=== PATIENT | female | born 1960 | race Hispanic/Latino ===

== ENCOUNTER 2020-12-16 08:59 | Emergency (ER) | payer SELFPAY ==
[2020-12-16] MEDS ORDERED: LIDOCAINE 1% MPF 5 ML VIAL ONE (09:52)
--- NOTE | 2020-12-16 09:54 | ER ---
Nurse's Notes [facility] Name: Brittney Gil Age: 60 yrs Sex: Female : 1960 Arrival Date: 12/16/2020 Time: 09:03 Bed 5 Private MD: Diagnosis: Laceration without foreign body of right forearm Presentation: 12/16 09:18 Chief complaint: Patient states: small laceration to right forearm , was putting away iw some onions at work and a knife caught her forearm. Coronavirus screen: At this time, the client does not indicate any symptoms associated with coronavirus-19. Ebola Screen: Patient negative for fever greater than or equal to 101.5 degrees Fahrenheit, and additional compatible Ebola Virus Disease symptoms Patient denies exposure to infectious person. Patient denies travel to an Ebola-affected area in the 21 days before illness onset. No symptoms or risks identified at this time. Complicating Factors: There are no complicating factors for this patient. Initial Sepsis Screen: Does the patient meet any 2 criteria? No. Patient's initial sepsis screen is negative. Does the patient have a suspected source of infection? No. Patient's initial sepsis screen is negative. Risk Assessment: Do you want to hurt yourself or someone else? Patient reports no desire to harm self or others. Onset of symptoms was December 16, 2020. 09:18 Method Of Arrival: Ambulatory iw 09:18 Acuity: DAVID 4 iw Historical: - Allergies: 09:20 No Known Allergies; iw - PMHx: 09:20 Hypertension; Hyperlipidemia; iw - PSHx: 09:20 None; iw - Immunization history:: Adult Immunizations Last tetanus immunization: unknown. - Social history:: Smoking status: . Screenin:52 Abuse screen: Denies threats or abuse. Denies injuries from another. Nutritional hb screening: No deficits noted. Tuberculosis screening: No symptoms or risk factors identified. Fall Risk None identified. Assessment: 09:40 General: Appears in no apparent distress. Behavior is calm, cooperative. Pain: Denies hb pain. Neuro: Level of Consciousness is awake, alert, obeys commands, Oriented to person, place, time, situation. Cardiovascular: Patient's skin is warm and dry. Respiratory: Respiratory effort is even, unlabored, Respiratory pattern is regular, symmetrical. GI: No signs and/or symptoms were reported involving the gastrointestinal system. : No signs and/or symptoms were reported regarding the genitourinary system. EENT: No signs and/or symptoms were reported regarding the EENT system. Derm: Skin is pink, warm \T\ dry. Musculoskeletal: No signs and/or symptoms reported regarding the musculoskeletal system. Injury Description: Laceration sustained to dorsal aspect of right forearm is clean, 2.6 to 7.5 cm long. Vital Signs: 09:18 BP 163 / 72; Pulse 55; Resp 16; Temp 98.1; Pulse Ox 95% on R/A; Weight 73.03 kg; Height iw 5 ft. 5 in. (165.10 cm); 09:18 Body Mass Index 26.79 (73.03 kg, 165.10 cm) iw ED Course: 09:03 Patient arrived in ED. mr 09:20 Triage completed. iw 09:21 Arm band placed on. iw 09:22 Santos Monteiro NP is PHCP. pm1 09:22 Darius Salmon MD is Attending Physician. pm1 09:35 Patient has correct armband on for positive identification. Call light in reach. hb 09:37 Liz Chase RN is Primary Nurse. 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 Exp: hb 02/25/2022. Lot #: [id number]. } Route: IM; Site: right deltoid; 10:11 Follow up: Response: No adverse reaction hb Outcome: 09:53 Discharge ordered by . pm1 10:11 Patient left the ED. hb Signatures: Adele Jurado Betsy Juarez RN RN iw Santos Monteiro NP COMMERCIAL ENGINEER pm1 Liz Chase RN RN hb
--- NOTE | 2020-12-16 09:54 | EDPHYS ---
Physician Documentation [facility] Name: Brittney Gil Age: 60 yrs Sex: Female : 1960 Arrival Date: 12/16/2020 Time: 09: Bed 5 Private MD: ED Physician Darius Salmon HPI: 12/16 09:26 This 60 yrs old Female presents to ER via Ambulatory with complaints of pm1 Laceration To Arm. 09:26 The patient has a laceration related to: working, from a knife, occurred at work, and pm1 there are no complicating factors. The injury was accidental, Patient was putting a box under a table at work and she did not see that a knife was placed between two tables. Knife cut her right forearm. The laceration(s) is(are) located on the dorsal aspect of right forearm. Onset: The symptoms/episode began/occurred just prior to arrival. Associated signs and symptoms: Pertinent negatives: heavy bleeding, numbness distal to injury, suspected foreign body. The patient has not experienced similar symptoms in the past. It is unknown whether or not the patient has recently seen a physician. Historical: - Allergies: 09:20 No Known Allergies; iw - PMHx: 09:20 Hypertension; Hyperlipidemia; iw - PSHx: 09:20 None; iw - Immunization history:: Adult Immunizations Last tetanus immunization: unknown. - Social history:: Smoking status: . ROS: 09:26 Constitutional: Negative for fever, chills, and weight loss, Cardiovascular: Negative pm1 for chest pain, palpitations, and edema, Respiratory: Negative for shortness of breath, cough, wheezing, and pleuritic chest pain, Abdomen/GI: Negative for abdominal pain, nausea, vomiting, diarrhea, and constipation, Back: Negative for injury and pain. 09:26 Neuro: Negative for headache, weakness, numbness, tingling, and seizure. 09:26 MS/extremity: Positive for laceration, of the dorsal aspect of right forearm, Negative for 09:26 Skin: Positive for laceration(s), of the dorsal aspect of right forearm. Exam: 09:29 Constitutional: This is a well developed, well nourished patient who is awake, alert, pm1 and in no acute distress. Head/Face: Normocephalic, atraumatic. 09:29 Back: No spinal tenderness. No costovertebral tenderness. Full range of motion. pm1 09:29 Neck: Exam negative for acute changes, ROM/movement: is normal, is supple. 09:29 Cardiovascular: Exam negative for acute changes, Rate: normal, Rhythm: regular, Pulses: no pulse deficits are appreciated. 09:29 Respiratory: Exam negative for acute changes, respiratory distress, shortness of breath. 09:29 Skin: Exam negative for injury, laceration(s), the wound is approximately 1.5 cm(s). 09:29 Skin: injury, that can be described as clean, no foreign body, irregular, without pm1 bleeding. 09:29 Neuro: Exam negative for acute changes, Orientation: is normal, Mentation: is normal, Motor: is normal, moves all fours, Sensation: is normal, no obvious gross deficits. Vital Signs: 09:18 BP 163 / 72; Pulse 55; Resp 16; Temp 98.1; Pulse Ox 95% on R/A; Weight 73.03 kg; Height iw 5 ft. 5 in. (165.10 cm); 09:18 Body Mass Index 26.79 (73.03 kg, 165.10 cm) iw Laceration: 09:51 Wound Repair of 1.5cm ( 0.6in ) subcutaneous laceration to dorsal aspect of right pm1 forearm. Irregularly shaped.. Distal neuro/vascular/tendon intact. Anesthesia: Local anesthetic administered with 3 mls of 1% lidocaine. Wound prep: Extensive cleansing with betadine by refrigerating technician, Wound irrigation with saline by refrigerating technician, Wound explored extensively, Copious irrigation. Skin closed with 3 4-0 Prolene using simple sutures and sterile technique. Dressed with Neosporin, 4x4's. Patient tolerated well. MDM: 09:22 Patient medically screened. pm1 09:52 Data reviewed: vital signs. Counseling: I had a detailed discussion with the patient pm1 and/or guardian regarding: the historical points, exam findings, and any diagnostic results supporting the discharge/admit diagnosis, the need for outpatient follow up, a family practitioner, to return to the emergency department if symptoms worsen or persist or if there are any questions or concerns that arise at home. 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 Exp: hb 02/25/2022. Lot #: [id number]. } Route: IM; Site: right deltoid; 10:11 Follow up: Response: No adverse reaction hb Disposition: 11:28 Co-signature as Attending Physician, Darius Salmon MD. rn Disposition: 12/16/20 09:53 Discharged to Home. Impression: Laceration without foreign body of right forearm. - Condition is Stable. - Discharge Instructions: Laceration Care, Adult. - Prescriptions for Keflex 500 mg Oral Capsule - take 1 capsule by ORAL route every 12 hours for 10 days; 20 capsule. - Medication Reconciliation Form, Thank You Letter, Antibiotic Education, Prescription Opioid Use form. - Follow up: Emergency Department; When: As needed; Reason: Worsening of condition. Follow up: Private Physician; When: 10 - 14 days; Reason: Recheck today's complaints, Continuance of care, Staple/Suture removal, Re-evaluation by your physician. - Problem is new. - Symptoms have improved. Signatures: Betsy Juarez RN RN Darius Salmon MD MD rn Marinas, Patrick, NP ARRANGING FUNERAL DIRECTOR pm1 Liz Chase RN RN hb Corrections: (The following items were deleted from the chart) 09:32 09:29 Neck: Exam negative for pm1 pm1 10:11 09:53 12/16/2020 09:53 Discharged to Home. Impression: Laceration without foreign body hb of right forearm. Condition is Stable. Forms are Medication Reconciliation Form, Thank You Letter, Antibiotic Education, Prescription Opioid Use. Follow up: Emergency Department; When: As needed; Reason: Worsening of condition. Follow up: Private Physician; When: 10 - 14 days; Reason: Recheck today's complaints, Continuance of care, Staple/Suture removal, Re-evaluation by your physician. Problem is new. Symptoms have improved. pm1
[2020-12-16] MEDS ORDERED: TETANUS & DIPHTHERIA TOX,ADULT 0.5 ML VIAL ONE (10:05)
[2020-12-16 21:42] VITALS: BP 163/72; TEMP 98.1; O2SAT 95
== END 2020-12-16 10:11 | disposition home or self-care (01) ==
LOC: ER 08:59
PROC: 0JQG0ZZ Repair Right Lower Arm Subcutaneous Tissue and Fascia, Open Approach (ICD-10-PCS; principal; 2020-12-16)
DX: S51.811A Laceration without foreign body of right forearm, initial encounter (principal); W26.0XXA Contact with knife, initial encounter; Y93.89 Activity, other specified; Y92.89 Other specified places as the place of occurrence of the external cause; Y99.8 Other external cause status; Z23 Encounter for immunization; I10 Essential (primary) hypertension
CPT/HCPCS: 90471; 90714; 99282

== ENCOUNTER 2020-12-26 09:57 | Emergency (ER) | payer SELFPAY ==
--- NOTE | 2020-12-26 10:14 | ER ---
Nurse's Notes [facility] Name: Brittney Vasquez Age: 60 yrs Sex: Female : 1960 Arrival Date: 12/26/2020 Time: 10:00 Bed Waiting Private MD: Diagnosis: Encounter for removal of sutures Presentation: 12/26 10:08 Chief complaint: Patient states: needs sutures removed from right forearm. Coronavirus hb screen: Client denies travel out of the [place] in the last 14 days. At this time, the client does not indicate any symptoms associated with coronavirus-19. Ebola Screen: No symptoms or risks identified at this time. Risk Assessment: Do you want to hurt yourself or someone else? Patient reports no desire to harm self or others. Onset of symptoms was December 26, 2020. 10:08 Method Of Arrival: Ambulatory hb 10:08 Acuity: DAVID 4 hb 10:10 Initial Sepsis Screen: Does the patient meet any 2 criteria? HR > 90 bpm. No. Patient's hb initial sepsis screen is negative. Does the patient have a suspected source of infection? No. Patient's initial sepsis screen is negative. Triage Assessment: 10:09 General: Appears in no apparent distress. comfortable, Behavior is calm, cooperative, hb appropriate for age. Pain: Denies pain. Neuro: Level of Consciousness is awake, alert, obeys commands, Oriented to person, place, time, situation, Gait is steady. Respiratory: Respiratory effort is even, unlabored. Historical: - Allergies: 10:10 No Known Allergies; hb - PMHx: 10:09 Hyperlipidemia; Hypertension; hb - PSHx: 10:09 None; hb - Immunization history:: Adult Immunizations up to date. - Social history:: Smoking status: . Screenin:10 Abuse screen: Denies threats or abuse. Denies injuries from another. Nutritional hb screening: No deficits noted. Tuberculosis screening: No symptoms or risk factors identified. Fall Risk None identified. Assessment: 10:11 Reassessment: Patient appears in no apparent distress at this time. No changes from hb previously documented assessment. Patient and/or family updated on plan of care and expected duration. Pain level reassessed. Patient is alert, oriented x 3, equal unlabored respirations, skin warm/dry/pink. See triage assessment. Vital Signs: 10:10 BP 146 / 82; Pulse 94; Resp 16; Temp 97.3; Pulse Ox 100% ; hb ED Course: 10:00 Patient arrived in ED. mr 10:07 Ingris Majano [facility] kb 10:07 Darius Salmon MD is Attending Physician. kb 10:08 Arm band placed on. hb 10:09 Triage completed. hb 10:10 Patient has correct armband on for positive identification. hb 10:10 sutures removed from left forearm. Patient did not have IV access during this emergency hb room visit. Administered Medications: No medications were administered Outcome: 10:14 Discharge ordered by . kb 10:49 Patient left the ED. kb Signatures: Ingris Majano FNP-C FNP-Ckb Rivera, Mary Liz Chase, RN RN hb
--- NOTE | 2020-12-26 10:14 | EDPHYS ---
Physician Documentation [facility] Name: Brittney Vasquez Age: 60 yrs Sex: Female : 1960 Arrival Date: 12/26/2020 Time: 10:00 Bed Waiting Private MD: ED Physician Darius Salmon HPI: 12/26 10:12 This 60 yrs old Female presents to ER via Ambulatory with complaints of Suture kb Removal. 10:12 The patient has sutures on the palmar aspect of right forearm. Previous treatment: The kb patient was initially treated 10 day(s) ago, the care was rendered at [facility]. Sutures/camryn progress: The patient has no c/o's. The wound is well-healing with no redness, swelling, discharge, or dehiscence reported. The patient has not experienced similar symptoms in the past. The patient has been recently seen at the [facility] Emergency Department. Historical: - Allergies: 10:10 No Known Allergies; hb - PMHx: 10:09 Hyperlipidemia; Hypertension; hb - PSHx: 10:09 None; hb - Immunization history:: Adult Immunizations up to date. - Social history:: Smoking status: . ROS: 10:12 Constitutional: Negative for fever, chills, and weight loss, MS/Extremity: Negative for kb injury and deformity, Neuro: Negative for headache, weakness, numbness, tingling, and seizure. 10:12 Skin: Positive for of the palmar aspect of right forearm, sutures in place. Exam: 10:12 Constitutional: This is a well developed, well nourished patient who is awake, alert, kb and in no acute distress. Head/Face: Normocephalic, atraumatic. Respiratory: Respirations even and unlabored. No increased work of breathing, no retractions or nasal flaring. MS/ Extremity: Pulses equal, no cyanosis. Neurovascular intact. Full, normal range of motion. Neuro: Awake and alert, GCS 15, oriented to person, place, time, and situation. Moves all extremities. Normal gait. 10:12 Skin: Wound recheck: Suture laceration closure: the wound is healing well, the edges are well approximated, no evidence of dehiscence, no drainage, no erythema, no swelling. Vital Signs: 10:10 BP 146 / 82; Pulse 94; Resp 16; Temp 97.3; Pulse Ox 100% ; hb Procedures: 10:12 Suture/Staple removal: Removed 3 sutures, from palmar aspect of right forearm, site kb appears well healed, dressed with steri-strip. Patient tolerated well. MDM: 10:12 Patient medically screened. kb 10:13 Data reviewed: vital signs, nurses notes. Data interpreted: Pulse oximetry: on room air kb is 100 %. Interpretation: normal. Counseling: I had a detailed discussion with the patient and/or guardian regarding: the historical points, exam findings, and any diagnostic results supporting the discharge/admit diagnosis, the need for outpatient follow up, a family practitioner, to return to the emergency department if symptoms worsen or persist or if there are any questions or concerns that arise at home. Administered Medications: No medications were administered Disposition: 15:10 Co-signature as Attending Physician, Darius Salmon MD. rn Disposition: 12/26/20 10:14 Discharged to Home. Impression: Encounter for removal of sutures. - Condition is Stable. - Discharge Instructions: Suture Removal, Care After. - Medication Reconciliation Form, Thank You Letter, Antibiotic Education, Prescription Opioid Use form. - Follow up: Emergency Department; When: As needed; Reason: Worsening of condition. Follow up: Private Physician; When: 2 - 3 days; Reason: Recheck today's complaints, Continuance of care, Re-evaluation by your physician. Signatures: Ingris Majano, SPRAY I PAINTER-C SPRAY I PAINTER-Ckb Darius Salmon MD MD rn Baxter, Heather, RN RN hb Corrections: (The following items were deleted from the chart) 10:49 10:14 12/26/2020 10:14 Discharged to Home. Impression: Encounter for removal of kb sutures. Condition is Stable. Forms are Medication Reconciliation Form, Thank You Letter, Antibiotic Education, Prescription Opioid Use. Follow up: Emergency Department; When: As needed; Reason: Worsening of condition. Follow up: Private Physician; When: 2 - 3 days; Reason: Recheck today's complaints, Continuance of care, Re-evaluation by your physician. kb
[2020-12-26 11:07] VITALS: BP 146/82; TEMP 97.3; O2SAT 100
== END 2020-12-26 10:49 | disposition home or self-care (01) ==
LOC: ER 09:57
DX: Z48.02 Encounter for removal of sutures (principal)
CPT/HCPCS: 99281

== ENCOUNTER 2024-07-05 14:52 | Emergency (ER) | payer SELFPAY ==
--- OUTSIDE RECORDS SUMMARY | 2024-07-05 14:56 | XMS REPORT | Continuity of Care Document ---
Author Name Unknown Address [address] [facility] [address] [place] [address] [facility] Address [address] [facility] 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 Role Phone Pcp, Patient Does Not Have A Primary Care Physic willem Doctor Unassigned, [place] Attending Clinician U navailable RADIOLOGY Attending Clinician Unavailable Radiology Attending Clinician Unavailable DARLIN CASTREJON Admitting Clinician Unavailable Allergies, Adverse Reactions, Alerts Allergy Name Allergy Type Status Severity Reaction(s) Onset Date Inactive Date Treating Clinician Comments Source NO KNOWN ALLERGIE S Drug Class Active [facility] Social History Social Habit Start Date Stop Date Quantity Comments Source Sexual orientation U [facility] Sex Assigned At 1960 00:00:00 1960 00:00:00 [facility] Smoking Status Start Date Stop Date Source Tobacco smoking consumption unknown [facility] Medications Ordered Medication Name Filled Medication Name Start Date Stop Date Current Medication? Ordering Clinician Indication Dosage Frequency Signature (SIG) Comments Components Source metformin 500 mg tablet 06-10 00:00: 00 Yes 1mg Steffen F Singh lisinopril 10 mg-hydrochl orothiazide 12.5 mg tablet 06-10 00:00: 00 Yes 1mg Steffenvel Winters atorvastati n 40 mg tablet - 00:00: 00 Yes mg Steffen F Singh lisinopril 10 mg tablet 2023-- 00:00: 00 Yes 1mg Steffen Winters fenofibrate nanocrystal lized 145 mg tablet 02-11 00:00: 00 Yes 1mg Steffen Winters metformin 500 mg tablet 02-11 00:00: 00 Yes 1mg Steffen Winters phentermine 37.5 mg tablet 02-11 00:00: 00 Yes 1mg Steffen Winters atorvastati n 40 mg tablet 02-11 00:00: 00 Yes 1mg Steffen Winters Macrobid 100 mg capsule 02-11 00:00: 00 Yes 1mg Steffen iWnters TAKE 1 TABLET DAILY. 11-03 00:00: 00 Yes 40 Steffen Winters TAKE 1 TABLET DAILY. 11-03 00:00: 00 Yes [id number] Steffen Winters TAKE 1 TABLET DAILY. 11-03 00:00: 00 Yes 500 Steffen Winters TAKE 1 TABLET BY MOUTH ONCE DAILY 05-09 00:00: 00 Yes Steffen Winters TAKE 1 TABLET DAILY. 05-09 00:00: 00 12-22 00:00 :00 No 10 Steffen Winters TAKE 1 TABLET DAILY. 05-09 00:00: 00 12-22 00:00 :00 No [id number] Steffen Winters TAKE 1 TABLET DAILY. 18 00:00: 00 12-22 00:00 :00 No 40 Steffen Winters TAKE 1 TABLET BY MOUTH ONCE DAILY 05-05 00:00: 00 Yes Steffen Winters TAKE 1 TABLET BY MOUTH ONCE DAILY 14 00:00: 00 Yes Steffen Winters TAKE ONE (1) TABLET (37.5 MG) BY MOUTH DAILY. 03-26 00:00: 00 Yes Steffen Winters TAKE 1 TABLET DAILY. 02-14 00:00: 00 12-22 00:00 :00 No 500 Steffen Winters TAKE 1 TABLET DAILY. 02-14 00:00: 00 12-22 00:00 :00 No [id number] Steffen Winters TAKE ONE (1) TABLET(S) BY MOUTH ONCE A DAY. 01-22 00:00: 00 Yes Steffen Winters TAKE ONE (1) TABLET(S) BY MOUTH ONCE A DAY. 4-05 00:00: 00 Yes Steffen Winters TAKE 1 TABLET DAILY. 3-13 00:00: 00 12-22 00:00 :00 No 500 Steffen Winters TAKE 1 TABLET DAILY. 3-13 00:00: 00 12-22 00:00 :00 No 40 Steffen Winters TAKE 1 TABLET DAILY. 3 00:00: 00 12-22 00:00 :00 No [id number] Steffen Winters TAKE 1 TABLET BY MOUTH ONCE DAILY 9-30 00:00: 00 Yes Steffen Winters TAKE 1 TABLET BY MOUTH ONCE DAILY 9- 00:00: 00 No TAKE 1 TABLET BY MOUTH ONCE DAILY 9 00:00: 00 12-22 00:00 :00 No Steffen Winters TAKE 1 TABLET DAILY. - 00:00: 00 12-22 00:00 :00 No [id number] Steffen Winters TAKE 1 TABLET BY MOUTH ONCE DAILY 0 8-18 00:00: 00 No 40 TAKE 1 TABLET BY MOUTH ONCE DAILY 0 8-18 00:00: 00 Yes 40 Steffen Winters montelukast 10 mg tablet - 00:00: 00 No 1mg Dose Unknown - 00:00: 00 No montelukast 10 mg tablet - 00:00: 00 Yes 1mg Steffen Winters Dose Unknown - 00:00: 00 Yes Steffen Winters Dose Unknown 6-08 00:00: 00 No Dose Unknown 0 6-08 00:00: 00 Yes Steffen Winters montelukast 10 mg tablet 6- 00:00: 00 No 1mg montelukast 10 mg tablet 6-03 00:00: 00 Yes 1mg Steffen Winters Dose Unknown 5-02 00:00: 00 No Dose Unknown 5-02 00:00: 00 No Dose Unknown 4-15 00:00: 00 No Dose Unknown 0 4-15 00:00: 00 No Dose Unknown 0 4-15 00:00: 00 Yes Steffen Winters Dose Unknown 0 4-15 00:00: 00 Yes Steffen Winters Dose Unknown 0 4-13 00:00: 00 No Dose Unknown 0 4-13 00:00: 00 No Dose Unknown 0 4-13 00:00: 00 Yes Steffen Winters Dose Unknown 0 4-13 00:00: 00 Yes Steffen Winters montelukast 10 mg tablet 0 4-12 00:00: 00 No 1mg Flonase Allergy Relief 50 mcg/actuati on nasal spray,suspe nsion 0 4-12 00:00: 00 No 1mcg/ac tuation montelukast 10 mg tablet 0 4-12 00:00: 00 Yes 1mg Steffen Winters Flonase Allergy Relief 50 mcg/actuati on nasal spray,suspe nsion 0 4-12 00:00: 00 Yes 1mcg/ac tuation Steffen Winters levofloxaci n 500 mg tablet 0 4-08 00:00: 00 No 1mg Dose Unknown 0 4-08 00:00: 00 No levofloxaci n 500 mg tablet 0 4-08 00:00: 00 Yes 1mg Steffen Winters Dose Unknown 0 4-08 00:00: 00 Yes Steffen Winters lisinopril 10 mg-hydrochl orothiazide 12.5 mg tablet 0 2-15 00:00: 00 No 1mg atorvastati n 40 mg tablet 2021-0 2-15 00:00: 00 No 1mg lisinopril 10 mg-hydrochl orothiazide 12.5 mg tablet 2021-0 2-15 00:00: 00 Yes 1mg Steffen Winters atorvastati n 40 mg tablet 0 2-15 00:00: 00 Yes 1mg Steffen Winters levofloxaci n 500 mg tablet 2020-0 6-24 00:00: 00 No 1mg omeprazole 20 mg capsule,del ayed release 2020-0 6-24 00:00: 00 No 1mg amoxicillin 500 mg capsule 03-15 00:00: 00 No 2mg levofloxaci n 500 mg tablet 03-15 00:00: 00 Yes 1mg Steffen Winters omeprazole 20 mg capsule,del ayed release 03-15 00:00: 00 Yes 1mg Steffen Winters amoxicillin 500 mg capsule 0 03-15 00:00: 00 Yes 2mg Steffen Winters sulfamethox azole 800 mg-trimetho prim 160 mg tablet 03-13 00:00: 00 No 1mg sulfamethox azole 800 mg-trimetho prim 160 mg tablet 03-13 00:00: 00 Yes 1mg Steffen Winters omeprazole 20 mg capsule,del ayed release 12-13 00:00: 00 No 1mg omeprazole 20 mg capsule,del ayed release 12-13 00:00: 00 Yes 1mg Steffen Winters atorvastati n 40 mg tablet 12-12 00:00: 00 No 1mg lisinopril 10 mg-hydrochl orothiazide 12.5 mg tablet 12-12 00:00: 00 No 1mg atorvastati n 40 mg tablet 12-12 00:00: 00 Yes 1mg Steffen Winters lisinopril 10 mg-hydrochl orothiazide 12.5 mg tablet 12-12 00:00: 00 Yes 1mg Steffen Winters metronidazo le 500 mg tablet 2- 00:00: 00 No 1mg clarithromy richa 500 mg tablet 2- 00:00: 00 No 1mg omeprazole 20 mg capsule,del ayed release 2- 00:00: 00 No 1mg metronidazo le 500 mg tablet 2- 00:00: 00 Yes 1mg Steffen Winters clarithromy richa 500 mg tablet 2- 00:00: 00 Yes 1mg Steffen Winters omeprazole 20 mg capsule,del ayed release 2- 00:00: 00 Yes 1mg Steffen Winters atorvastati n 40 mg tablet 2019-09 00:00: 00 No 1mg lisinopril 10 mg-hydrochl orothiazide 12.5 mg tablet 2019-09 00:00: 00 No 1mg atorvastati n 40 mg tablet 2019-09 00:00: 00 Yes 1mg Steffen Winters lisinopril 10 mg-hydrochl orothiazide 12.5 mg tablet 2019-09 00:00: 00 Yes 1mg Steffen Winters lisinopril 10 mg-hydrochl orothiazide 12.5 mg tablet 2019-09 00:00: 00 No 1mg atorvastati n 40 mg tablet 2019-09 00:00: 00 No 1mg lisinopril 10 mg-hydrochl orothiazide 12.5 mg tablet 2019-09 00:00: 00 Yes 1mg Steffen Winters atorvastati n 40 mg tablet 2019-09 00:00: 00 Yes 1mg Steffen Winters atorvastati n 40 mg tablet 2018-09 00:00: 00 No 1mg atorvastati n 40 mg tablet 2018-0918 00:00: 00 Yes 1mg Steffen Winters cyclobenzap rine 5 mg tablet 605 00:00: 00 No 1mg cyclobenzap rine 5 mg tablet 05 00:00: 00 Yes 1mg Steffen Winters clarithromy richa 500 mg tablet 12-15 00:00: 00 No 1mg amoxicillin 500 mg capsule 12-15 00:00: 00 No 2mg clarithromy richa 500 mg tablet 12-15 00:00: 00 Yes 1mg Steffen Winters amoxicillin 500 mg capsule 12-15 00:00: 00 Yes 2mg Steffen Winters lisinopril 10 mg-hydrochl orothiazide 12.5 mg tablet 11-23 00:00: 00 No 1mg lisinopril 10 mg-hydrochl orothiazide 12.5 mg tablet 11-23 00:00: 00 No 1mg lisinopril 10 mg-hydrochl orothiazide 12.5 mg tablet 11-23 00:00: 00 Yes 1mg Steffen Winters ibuprofen 600 mg tablet 11-21 00:00: 00 No 1mg ibuprofen 600 mg tablet 11-21 00:00: 00 Yes 1mg Steffen Winters Immunizations Ordered Immunization Name Filled Immunization Name Date Status Comments Source Influenza, injectable, Madin Shruthi Canine Kidney, preservative-free, quadrivalent Influenza, injectable, Madin Cascade Canine Kidney, preservative-free, quadrivalent 2024-06-10 00:00:00 Completed Steffen Winters (Old) Moderna COVID-19 Vaccine Bivalent Booster for ages 6 + years (18+, 12-17, 6-11) (Old) Moderna COVID-19 Vaccine Bivalent Booster for ages 6 + years (18+, 12-17, 6-11) 2022-12-27 00:00:00 Completed Steffen Wniters pneumococcal polysacchar 2021-11-06 00:00:00 Completed pneumococcal polysacchar pneumococcal polysacchar 2021-11-06 00:00:00 Completed Steffen Winters Moderna COVID-19 Vaccine 2021-08-28 00:00:00 Completed Moderna COVID-19 Vaccine Moderna COVID-19 Vaccine 2021-08-28 00:00:00 Completed Steffen Winters Moderna COVID-19 Vaccine 2020-12-02 00:00:00 Completed Moderna COVID-19 Vaccine Moderna COVID-19 Vaccine 2020-12-02 00:00:00 Completed Steffen Winters Moderna COVID-19 Vaccine 2020-10-29 00:00:00 Completed Moderna COVID-19 Vaccine Moderna COVID-19 Vaccine 2020-10-29 00:00:00 Completed Steffen Winters Influenza, seasonal, inj 2019-07-14 00:00:00 Completed Influenza, seasonal, inj Influenza, seasonal, inj 2019-07-14 00:00:00 Completed Steffen Winters zoster 2019-02-24 00:00:00 Completed zoster zoster 2019-02-24 00:00:00 Completed Steffen Winters Vital Signs Vital Name Observation Time Observation Value Comments S marco BP Systolic 2024-06-10 08:57:00 145 mm[Hg] Andreas Winters BP Diastolic 2024-06-10 08:57:00 81 mm[Hg] Ej Winters Weight Measured 2024-06-10 08:57:00 163.20 pounds Steffen F Singh Height Measured 2024-06-10 08:57:00 60.00 inches Steffen F Singh Body Temperature 2024-06-10 08:57:00 97.90 degrees Steffen F Singh Heart Rate 2024-06-10 08:57:00 59.00 /min Yudith en F Singh Respiratory Rate 2024-06-10 08:57:00 Stfefen F Singh BP Systolic 2024-03-09 15:54:00 155 mm[Hg] Step hen F Singh BP Diastolic 2024-03-09 15:54:00 78 mm[Hg] Ej phen F Singh Weight Measured 2024-03-09 15:54:00 166.00 pounds Steffen F Singh Height Measured 2024-03-09 15:54:00 60.00 inches Steffen F Singh Body Temperature 2024-03-09 15:54:00 98.30 degrees Steffen F Singh Heart Rate 2024-03-09 15:54:00 63.00 /min Yudith en F Singh Respiratory Rate 2024-03-09 15:54:00 18.00 /min Steffen F Singh BP Systolic 2024-02-12 14:58:00 113 mm[Hg] Step hen F Singh BP Diastolic 2024-02-12 14:58:00 62 mm[Hg] Ej phen F Singh Weight Measured 2024-02-12 14:58:00 166.00 pounds Steffen F Singh Height Measured 2024-02-12 14:58:00 60.00 inches Steffen F Singh Body Temperature 2024-02-12 14:58:00 97.80 degrees Steffen F Singh Heart Rate 2024-02-12 14:58:00 61.00 /min Yudith en F Singh Respiratory Rate 2024-02-12 14:58:00 16.00 /min Steffen F Singh BP Systolic 2024-02-12 14:31:00 113 mm[Hg] Step hen F Singh BP Diastolic 2024-02-12 14:31:00 62 mm[Hg] Ej phen F Singh Weight Measured 2024-02-12 14:31:00 166.00 pounds Steffen F Singh Height Measured 2024-02-12 14:31:00 60.00 inches Steffen F Singh Body Temperature 2024-02-12 14:31:00 97.80 degrees Steffen F Singh Heart Rate 2024-02-12 14:31:00 61.00 /min Yudith en F Singh Respiratory Rate 2024-02-12 14:31:00 Steffen F Singh BP Systolic 2023-11-03 10:52:00 146 mm[Hg] Step hen F Singh BP Diastolic 2023-11-03 10:52:00 91 mm[Hg] Ej phen F Singh Weight Measured 2023-11-03 10:52:00 170.60 pounds Steffen F Singh Height Measured 2023-11-03 10:52:00 60.00 inches Steffen F Singh Body Temperature 2023-11-03 10:52:00 98.30 degrees Steffen F Singh Heart Rate 2023-11-03 10:52:00 49.00 /min Yudith en F Singh Respiratory Rate 2023-11-03 10:52:00 16.00 /min Steffen F Singh BP Systolic 2023-05-09 07:58:00 112 mm[Hg] Step hen F Singh BP Diastolic 2023-05-09 07:58:00 75 mm[Hg] Ej phen F Singh Weight Measured 2023-05-09 07:58:00 155.80 pounds Steffen F Singh Height Measured 2023-05-09 07:58:00 60.00 inches Steffen F Singh Body Temperature 2023-05-09 07:58:00 98.30 degrees Steffen F Singh Heart Rate 2023-05-09 07:58:00 62.00 /min Yudith en F Singh Respiratory Rate 2023-05-09 07:58:00 Steffen F Singh BP Systolic 2023-02-14 08:03:00 144 mm[Hg] Step hen F Singh BP Diastolic 2023-02-14 08:03:00 83 mm[Hg] Ej phen F Singh Weight Measured 2023-02-14 08:03:00 152.20 pounds Steffen F Singh Height Measured 2023-02-14 08:03:00 60.00 inches Steffen F Singh Body Temperature 2023-02-14 08:03:00 97.90 degrees Steffen F Singh Heart Rate 2023-02-14 08:03:00 65.00 /min Yudith en F Singh Respiratory Rate 2023-02-14 08:03:00 17.00 /min Steffen F Singh BP Systolic 2022-12-02 13:57:00 131 mm[Hg] Step hen F Singh BP Diastolic 2022-12-02 13:57:00 82 mm[Hg] Ej phen F Singh Weight Measured 2022-12-02 13:57:00 171.20 pounds Steffen F Singh Height Measured 2022-12-02 13:57:00 60.00 inches Steffen F Singh Body Temperature 2022-12-02 13:57:00 97.40 degrees Steffen F Singh Heart Rate 2022-12-02 13:57:00 70.00 /min Yudith en F Singh Respiratory Rate 2022-12-02 13:57:00 18.00 /min Steffen F Singh BP Systolic 2022-06-10 09:16:00 152 mm[Hg] Step hen F Singh BP Diastolic 2022-06-10 09:16:00 79 mm[Hg] Ej phen F Singh Weight Measured 2022-06-10 09:16:00 170.20 pounds Steffen F Singh Height Measured 2022-06-10 09:16:00 60.00 inches Steffen F Singh Body Temperature 2022-06-10 09:16:00 98.10 degrees Steffen F Singh Heart Rate 2022-06-10 09:16:00 79.00 /min Yudith en F Singh Respiratory Rate 2022-06-10 09:16:00 Steffen F Singh BP Systolic 2022-02-27 16:32:00 115 mm[Hg] Step hen F Singh BP Diastolic 2022-02-27 16:32:00 64 mm[Hg] Ej phen F Singh Weight Measured 2022-02-27 16:32:00 175.40 pounds Steffen F Singh Height Measured 2022-02-27 16:32:00 60.00 inches Steffen F Singh Body Temperature 2022-02-27 16:32:00 98.60 degrees Steffen F Singh Heart Rate 2022-02-27 16:32:00 70.00 /min Yudith en F Singh Respiratory Rate 2022-02-27 16:32:00 21.00 /min Steffen F Singh BP Systolic 2022-01-21 08:20:00 149 mm[Hg] Step hen F Singh BP Diastolic 2022-01-21 08:20:00 82 mm[Hg] Ej Winters Weight Measured 2022-01-21 08:20:00 171.80 pounds Steffen Winters Height Measured 2022-01-21 08:20:00 60.00 inches Steffen Vasyl Winters Body Temperature 2022-01-21 08:20:00 97.30 degrees Steffen Winters Heart Rate 2022-01-21 08:20:00 63.00 /min Yudith Winters Respiratory Rate 2022-01-21 08:20:00 Steffen Winters BP Systolic 2022-01-01 11:45:00 150 mm[Hg] BP Diastolic 2022-01-01 11:45:00 77 mm[Hg] Weight Measured 2022-01-01 11:45:00 174.20 pounds Height Measured 2022-01-01 11:45:00 60.00 inches Body Temperature 2022-01-01 11:45:00 98.20 degrees Heart Rate 2022-01-01 11:45:00 63.00 /min Respiratory Rate 2022-01-01 11:45:00 16.00 /min BP Systolic 2021-12-28 17:37:00 143 mm[Hg] BP Diastolic 2021-12-28 17:37:00 72 mm[Hg] Weight Measured 2021-12-28 17:37:00 Height Measured 2021-12-28 17:37:00 Body Temperature 2021-12-28 17:37:00 Heart Rate 2021-12-28 17:37:00 Respiratory Rate 2021-12-28 17:37:00 BP Systolic 2021-11-06 09:03:00 148 mm[Hg] BP Diastolic 2021-11-06 09:03:00 89 mm[Hg] Weight Measured 2021-11-06 09:03:00 171.40 pounds Height Measured 2021-11-06 09:03:00 51.00 inches Body Temperature 2021-11-06 09:03:00 98.30 degrees Heart Rate 2021-11-06 09:03:00 60.00 /min Respiratory Rate 2021-11-06 09:03:00 16.00 /min BP Systolic 2021-05-23 17:10:00 BP Diastolic 2021-05-23 17:10:00 Weight Measured 2021-05-23 17:10:00 168.00 pounds Height Measured 2021-05-23 17:10:00 Body Temperature 2021-05-23 17:10:00 Heart Rate 2021-05-23 17:10:00 Respiratory Rate 2021-05-23 17:10:00 BP Systolic 2021-03-13 08:07:00 134 mm[Hg] BP Diastolic 2021-03-13 08:07:00 64 mm[Hg] Weight Measured 2021-03-13 08:07:00 165.60 pounds Height Measured 2021-03-13 08:07:00 51.00 inches Body Temperature 2021-03-13 08:07:00 98.90 degrees Heart Rate 2021-03-13 08:07:00 48.00 /min Respiratory Rate 2021-03-13 08:07:00 BP Systolic 2020-12-12 08:09:00 132 mm[Hg] BP Diastolic 2020-12-12 08:09:00 76 mm[Hg] Weight Measured 2020-12-12 08:09:00 163.20 pounds Height Measured 2020-12-12 08:09:00 51.00 inches Body Temperature 2020-12-12 08:09:00 99.00 degrees Heart Rate 2020-12-12 08:09:00 55.00 /min Respiratory Rate 2020-12-12 08:09:00 18.00 /min BP Systolic 2020-11-14 10:06:00 155 mm[Hg] BP Diastolic 2020-11-14 10:06:00 83 mm[Hg] Weight Measured 2020-11-14 10:06:00 164.60 pounds Height Measured 2020-11-14 10:06:00 51.00 inches Body Temperature 2020-11-14 10:06:00 98.30 degrees Heart Rate 2020-11-14 10:06:00 60.00 /min Respiratory Rate 2020-11-14 10:06:00 16.00 /min Procedures Procedure Date / Time Performed Performing Clinician Source AUTHORIZATION FOR RELEASE OF PHI 2022-06-28 05:01:00 Doctor Unassigned, [facility] CT HEAD WO CONTRAST 2022-01-28 14:03:55 Requisition, P aper [facility] PATIENT FINANCIAL POLICY 2022-01-28 13:34:49 Doctor Unassigned, [place] NO SHOW OR MISSED APPOINTMENT POLICY ACKNOWLEDGEMENT 2022-01-28 13:34:29 Doctor Unassigned, [place] NOTICE OF PRIVACY PRACTICES 2022-01-28 13:34:05 Doctor Unassigned, [place] CONSENT/REFUSAL FOR DIAGNOSIS AND TREATMENT 2022-01-28 13:33:46 Doctor Unassigned, [place] ASSIGNMENT OF BENEFITS 2022-01-28 13:33:24 Docto r Unassigned, [place] REFERRAL- REQUEST/RESPONSE 2022-01-21 05:01:00 Ashley izquierdo Unassigned, [facility] Plan of Care Planned Activity Planned Date Details Comments Source Goal Plan of Care Note [code = 52605-1] Goal Plan of Care Note [code = 82242-9] Goal Plan of Care Note [code = 59693-4] Goal Plan of Care Note [code = 80674-4] Goal Plan of Care Note [code = 34987-9] Goal Plan of Care Note [code = 12181-7] Goal Plan of Care Note [code = 94831-2] Goal Plan of Care Note [code = 96691-1] Goal Plan of Care Note [code = 52197-9] Goal Plan of Care Note [code = 19958-1] Goal Plan of Care Note [code = 07835-3] Goal Plan of Care Note [code = 73721-8] Goal Plan of Care Note [code = 31097-9] Goal Plan of Care Note [code = 30554-6] Goal Plan of Care Note [code = 72245-7] Goal Plan of Care Note [code = 07105-1] Goal Plan of Care Note [code = 93307-8] Goal Plan of Care Note [code = 28033-4] Goal Plan of Care Note [code = 07024-9] Goal Plan of Care Note [code = 22221-0] Goal Plan of Care Note [code = 74461-1] Goal Plan of Care Note [code = 48031-0] Goal Plan of Care Note [code = 41416-8] Goal Plan of Care Note [code = 52828-0] Goal Plan of Care Note [code = 05573-2] Goal Plan of Care Note [code = 32879-9] Goal Plan of Care Note [code = 07456-6] Goal Plan of Care Note [code = 52204-7] Goal Plan of Care Note [code = 01738-0] Goal Plan of Care Note [code = 29240-1] Goal Plan of Care Note [code = 64262-7] Goal Plan of Care Note [code = 90712-9] Goal Plan of Care Note [code = 64599-8] Goal Plan of Care Note [code = 49655-0] Encounters Start Date/Time End Date/Time Encounter Type Admission Type Attending [facility] Care Department Encounter ID Source 2024-06-10 08:52:45 2024-06-10 08:52:45 Outpatient [facility] [id number] Steffen Winters 2024-06-10 00:00:00 2024-06-10 00:00:00 Outpatient Visit [facility] [id number] Steffen Winters 2024-03-09 15:51:38 2024-03-09 15:51:38 Outpatient [facility] [id number] Steffen Winters 2024-03-09 00:00:00 2024-03-09 00:00:00 Outpatient Visit [facility] [id number] Steffen Winters 2024-02-12 14:25:07 2024-02-12 14:25:07 Outpatient [facility] [id number] Steffen Winters 2024-02-12 00:00:00 2024-02-12 00:00:00 Outpatient Visit [facility] [id number] Steffen Winters 2023-12-19 09:21:55 2023-12-19 09:21:55 Outpatient [facility] [id number] Steffen Winters 2023-11-10 09:32:57 2023-11-10 09:32:57 Outpatient [facility] [id number] Steffen Winters 2023-11-03 10:39:31 2023-11-03 10:39:31 Outpatient [facility] [id number] Steffen Winters 2023-05-09 07:53:05 2023-05-09 07:53:05 Outpatient [facility] [id number] Steffen Winters 2023-02-14 07:58:34 2023-02-14 07:58:34 Outpatient [facility] [id number] Steffen Fallon Singh 2022-12-02 13:43:55 2022-12-02 13:43:55 Outpatient [facility] [id number] Steffen Fallon Singh 2022-06-28 00:00:00 2022-06-28 00:00:00 Orders Only Doctor Unassigned, [place] [id number] [id number] [facility] 2022-06-10 00:00:00 2022-06-10 00:00:00 Outpatient Visit [id number] 2022-03-13 00:00:00 2022-03-13 00:00:00 Patient Secure Msg Doctor Unassigned, [place] [facility] ([facility] [id number] [id number] [id number] [id number] [facility] 2022-03-09 00:00:00 2022-03-09 00:00:00 Patient Secure Msg Doctor Unassigned, [place] [facility] 1.840.114 350.1.13.10 [id number] [id number] [facility] 2022-01-28 08:32:36 2022-01-28 23:59:00 Outpatient R RADIOLOGY [facility] [id number] [facility] 2022-01-28 08:32:36 2022-01-28 23:59:00 Hospital Encounter Radiology [facility] [id number] 350.1.13.10 [id number] [id number] [facility] 2022-01-21 00:00:00 2022-01-21 00:00:00 Orders Only Doctor Unassigned, [place] [facility] [id number] [id number] [id number] [id number] [facility] Results Test Description Test Time Test Comments Results Result Co mments Source COMPREHENSIVE METABOLIC [id number] 03:43:49* Test Item Value Reference Range Interpretation Comme nts GLUCOSE (test code = 2217) 110 MG/DL 70-99 H BUN (test code = 220) 17 MG/DL 8-23 CREATININE (test code = 2214) 0.60 MG/DL 0.60-1.30 eGFR (2020 CKD-EPI) (test code = 09305) 101 ML/MIN/1.73 >60 CALC BUN/CREAT (test code = 2235) 28 RATIO 6-28 SODIUM (test code = 2231) 140 MEQ/L 133-146 POTASSIUM (test code = 2228) 4.4 MEQ/L 3.5-5.4 CHLORIDE (test code = 2215) 104 MEQ/L 95-107 CARBON DIOXIDE (test code = 2206) 24 MEQ/L 19-31 CALCIUM (test code = 2209) 10.0 MG/DL 8.5-10.5 PROTEIN, TOTAL (test code = 2229) 7.4 G/DL 6.1-8.3 ALBUMIN (test code = 2201) 4.6 G/DL 3.5-5.2 CALC GLOBULIN (test code = 2240) 2.8 G/DL 1.9-3.7 CALC A/G RATIO (test code = 2234) 1.6 RATIO 1.0-2.6 BILIRUBIN, TOTAL (test code = 2207) 0.3 MG/DL <=1.2 ALKALINE PHOSPHATASE (test code = 2204) 85 U/L 40-140 AST (test code = 2218) 26 U/L 9-40 ALT (test code = 2219) 31 U/L 5-40 LIPID [id number] 03:43:49* Test Item Value Reference Range Interpretation Comme nts CHOLESTEROL (test code = 2210) 140 MG/DL <200 TRIGLYCERIDES (test code = 2232) 172 MG/DL <150 H HDL CHOLESTEROL (test code = 2220) 40 MG/DL >39 CALC LDL CHOL (test code = 2237) 73 MG/DL <100 NOTE: CALCULATED LDL IS BASED ON JEFFREY-GARCIA METHOD WHICHINCLUDES ADJUSTABLE TRIGLYCERIDE:VLDL CHOLESTEROL RATIO.THIS FACTOR VARIES BY MEASURED TRIGLYCERIDE AND NON-HDLCHOLESTEROL CONCENTRATIONS WITH INCREASED CALCULATED LDL SEENIN HIGHER TRIGLYCERIDE OR LOWER NON-HDL SPECIMENS. FOR MOREINFORMATION, SEE CLIENT ANNOUNCEMENT AT [email or web address] RATIO LDL/HDL (test code = 2238) 1.83 RATIO <3.22 UNLESS OTHERW ISE INDICATED, ALL TESTING PERFORMED AT [facility] [employer] [address] [place] [address] PULP BLEACHER: JONATAN RUFFIN M.D. CLIA NUMBER [id number] [place]. [id number] 09:40:53* Test Item Value Reference Range Interpretation Comme nts D-DIMER (test code = 1405) 0.35 UG/ML FEU <=0.49 NOTE: Provided r eference range is established for evaluation of Deep Venous Thrombosis/Pulmonary Embolus (DVT/PE). Results below cutoff value of <=0.49 UG/ML FEU have a high negative predictive value forDVT/PE. No reference range is established for disseminatedintra-vascul ar coagulation (DIC). UNLESS OTHERWISE INDICATED, ALL TESTING PERFORMED AT [facility] [address] [place] [address] PULP BLEACHER: JONATAN RUFFIN M.D. CLIA NUMBER [id number] [place]. [id number] 00:00:00* Test Item Value Reference Range Interpretation Comme nts D-DIMER (test code = 1405) 0.35 UG/MLFEU Steffen WintersRupeyrD-[id number] 00:00:00* Test Item Value Reference Range Interpretation Comme nts D-DIMER (test code = 1405) 0.35 UG/MLFEU Steffen WintersTzxcacH-[id number] 00:00:00* Test Item Value Reference Range Interpretation Comme nts D-DIMER (test code = 1405) 0.35 UG/MLFEU Steffen Larry [id number] 14:57:58SPECIMEN NUMBER: [id number] CULTURE, URINE SPECIMEN NUMBER: [id number] SOURCE: URINE REPORT STATUS: FINAL FINAL REPORT: 02/14/2024 50-100,000 CFU/ML UROGENITAL OMAR PRESENT NO COMMON PATHOGENS UNLESS OTHERWISE INDICATED, ALL TESTING PERFORMED AT [facility] [address] [place] [address] PULP BLEACHER: JONATAN RUFFIN M.D. CLIA NUMBER [id number] [facility] [place]. [id number] CULTURE, [id number] 00:00:00* Test Item Value Reference Range Interpretation Comme nts CULTURE, URINE (test code = 50282) SPECIMEN NUMBER: [id number] Steffen Larry, [id number] 00:00:00* Test Item Value Reference Range Interpretation Comme nts CULTURE, URINE (test code = 52434) SPECIMEN NUMBER: [id number] Steffen Larry, [id number] 00:00:00* Test Item Value Reference Range Interpretation Comme nts CULTURE, URINE (test code = 88673) SPECIMEN NUMBER: [id number] Steffen WintersLIPID [id number] 04:21:42* Test Item Value Reference Range Interpretation Comme nts CHOLESTEROL (test code = 2210) 116 MG/DL <200 TRIGLYCERIDES (test code = 2232) 183 MG/DL <150 H HDL CHOLESTEROL (test code = 2220) 38 MG/DL >39 L CALC LDL CHOL (test code = 2237) 52 MG/DL <100 NOTE: CALCULATED LDL IS BASED ON JEFFREY-GARCIA METHOD WHICHINCLUDES ADJUSTABLE TRIGLYCERIDE:VLDL CHOLESTEROL RATIO.THIS FACTOR VARIES BY MEASURED TRIGLYCERIDE AND NON-HDLCHOLESTEROL CONCENTRATIONS WITH INCREASED CALCULATED LDL SEENIN HIGHER TRIGLYCERIDE OR LOWER NON-HDL SPECIMENS. FOR MOREINFORMATION, SEE CLIENT ANNOUNCEMENT AT [email or web address] RISK RATIO LDL/HDL (test code = 2237) 1.37 RATIO <3.22 COMPREHENSIVE METABOLIC [id number] 04:21:42* Test Item Value Reference Range Interpretation Comme nts GLUCOSE (test code = 2216) 106 MG/DL 70-99 H BUN (test code = 2207) 15 MG/DL 8-23 CREATININE (test code = 2213) 0.50 MG/DL 0.60-1.30 L eGFR (2020 CKD-EPI) (test code = ) 105 ML/MIN/1.73 >60 CALC BUN/CREAT (test code = 2234) 30 RATIO 6-28 H SODIUM (test code = 2230) 141 MEQ/L 133-146 POTASSIUM (test code = 2227) 4.6 MEQ/L 3.5-5.4 CHLORIDE (test code = 2214) 103 MEQ/L 95-107 CARBON DIOXIDE (test code = 2205) 26 MEQ/L 19-31 CALCIUM (test code = 2208) 9.8 MG/DL 8.5-10.5 PROTEIN, TOTAL (test code = 2228) 7.5 G/DL 6.1-8.3 ALBUMIN (test code = 2200) 4.7 G/DL 3.5-5.2 CALC GLOBULIN (test code = 2240) 2.8 G/DL 1.9-3.7 CALC A/G RATIO (test code = 2233) 1.7 RATIO 1.0-2.6 BILIRUBIN, TOTAL (test code = 2206) 0.3 MG/DL <=1.2 ALKALINE PHOSPHATASE (test code = 2203) 86 U/L 40-140 AST (test code = 2217) 25 U/L 9-40 ALT (test code = 2219) 26 U/L 5-40 UNLESS OTHERWISE INDICATED, ALL TESTING PERFORMED AT [facility] [address] [place] [address] PULP BLEACHER: JONATAN RUFFIN M.D. IA NUMBER [id number] [facility] [place]. [id number] HEMOGLOBIN [id number] 02:09:29* Test Item Value Reference Range Interpretation Comme nts HEMOGLOBIN A1c (test code = 67616) 5.9 % 4.2-5.6 H [employer] GUIDELINES FOR HGB A1C: PREDIABETES/INCREASED RISK . . . . . . . 5.7-6.4% DIAGNOSIS OF DIABETES . . . . . . . . . >=6.5% WITH CONFIRMATION OR APPROPRIATE SYMPTOMS NOTE: ASSAY MAY BE AFFECTED BY HEMOGLOBINOPATHIES (SICKLE CELL ANEMIA, S-C DISEASE, OTHERS) OR ARTIFICIALLY LOWERED BY DECREASED RED CELL SURVIVAL (HEMOLYTIC ANEMIAS, BLOOD LOSS, ETC.). CONSIDER ALTERNATE TESTING OR LABORATORY CONSULTATION. LIPID [id number] 00:00:00* Test Item Value Reference Range Interpretation Comme nts CHOLESTEROL (test code = 2210) 116 MG/DL TRIGLYCERIDES (test code = 2232) 183 MG/DL HDL CHOLESTEROL (test code = 2220) 38 MG/DL CALC LDL CHOL (test code = 2237) 52 MG/DL RISK RATIO LDL/HDL (test cod e = 2238) 1.37 RATIO Steffen WintersCOMPREHENSIVE METABOLIC [id number] 00:00:00* Test Item Value Reference Range Interpretation Comme nts GLUCOSE (test code = 2217) 106 MG/DL BUN (test code = 2208) 15 MG/DL CREATININE (test code = 2214) 0.50 MG/DL eGFR (2020 CKD-EPI) (test code = 86915) 105 ML/MIN/1.73 CALC BUN/CREAT (test code = 2235) 30 RATIO SODIUM (test code = 2231) 141 MEQ/L POTASSIUM (test code = 2228) 4.6 MEQ/L CHLORIDE (test code = 2215) 103 MEQ/L CARBON DIOXIDE (test code = 2206) 26 MEQ/L CALCIUM (test code = 2209) 9.8 MG/DL PROTEIN, TOTAL (test code = 2229) 7.5 G/DL ALBUMIN (test code = 2201) 4.7 G/DL CALC GLOBULIN (test code = 2240) 2.8 G/DL CALC A/G RATIO (test code = 2234) 1.7 RATIO BILIRUBIN, TOTAL (test code = 2207) 0.3 MG/DL ALKALINE PHOSPHATASE (test code = 2204) 86 U/L AST (test code = 2218) 25 U/L ALT (test code = 2219) 26 U/L Steffen WintersHEMOGLOBIN [id number] 00:00:00* Test Item Value Reference Range Interpretation Comme nts HEMOGLOBIN A1c (test code = 24320) 5.9 % Steffen WintersLIPID [id number] 00:00:00* Test Item Value Reference Range Interpretation Comme nts CHOLESTEROL (test code = 2210) 116 MG/DL TRIGLYCERIDES (test code = 2232) 183 MG/DL HDL CHOLESTEROL (test code = 2220) 38 MG/DL CALC LDL CHOL (test code = 2237) 52 MG/DL RISK RATIO LDL/HDL (test cod e = 2238) 1.37 RATIO Steffen WintersCOMPREHENSIVE METABOLIC [id number] 00:00:00* Test Item Value Reference Range Interpretation Comme nts GLUCOSE (test code = 2217) 106 MG/DL BUN (test code = 2208) 15 MG/DL CREATININE (test code = 2214) 0.50 MG/DL eGFR (2020 CKD-EPI) (test code = 41146) 105 ML/MIN/1.73 CALC BUN/CREAT (test code = 2235) 30 RATIO SODIUM (test code = 2231) 141 MEQ/L POTASSIUM (test code = 2228) 4.6 MEQ/L CHLORIDE (test code = 2215) 103 MEQ/L CARBON DIOXIDE (test code = 2206) 26 MEQ/L CALCIUM (test code = 2209) 9.8 MG/DL PROTEIN, TOTAL (test code = 2229) 7.5 G/DL ALBUMIN (test code = 2201) 4.7 G/DL CALC GLOBULIN (test code = 2240) 2.8 G/DL CALC A/G RATIO (test code = 2234) 1.7 RATIO BILIRUBIN, TOTAL (test code = 2207) 0.3 MG/DL ALKALINE PHOSPHATASE (test code = 2204) 86 U/L AST (test code = 2218) 25 U/L ALT (test code = 2219) 26 U/L Steffen WintersHEMOGLOBIN [id number] 00:00:00* Test Item Value Reference Range Interpretation Comme nts HEMOGLOBIN A1c (test code = 79284) 5.9 % Steffen WintersLIPID [id number] 00:00:00* Test Item Value Reference Range Interpretation Comme nts CHOLESTEROL (test code = 2210) 116 MG/DL TRIGLYCERIDES (test code = 2232) 183 MG/DL HDL CHOLESTEROL (test code = 2220) 38 MG/DL CALC LDL CHOL (test code = 2237) 52 MG/DL RISK RATIO LDL/HDL (test cod e = 2238) 1.37 RATIO Steffen WintersCOMPREHENSIVE METABOLIC [id number] 00:00:00* Test Item Value Reference Range Interpretation Comme [facility] GLUCOSE (test code = 2217) 106 MG/DL BUN (test code = 2208) 15 MG/DL CREATININE (test code = 2214) 0.50 MG/DL eGFR (2020 CKD-EPI) (test code = 45988) 105 ML/MIN/1.73 CALC BUN/CREAT (test code = 2235) 30 RATIO SODIUM (test code = 2231) 141 MEQ/L POTASSIUM (test code = 2228) 4.6 MEQ/L CHLORIDE (test code = 2215) 103 MEQ/L CARBON DIOXIDE (test code = 2206) 26 MEQ/L CALCIUM (test code = 2209) 9.8 MG/DL PROTEIN, TOTAL (test code = 2229) 7.5 G/DL ALBUMIN (test code = 2201) 4.7 G/DL CALC GLOBULIN (test code = 2240) 2.8 G/DL CALC A/G RATIO (test code = 2234) 1.7 RATIO BILIRUBIN, TOTAL (test code = 2207) 0.3 MG/DL ALKALINE PHOSPHATASE (test code = 2204) 86 U/L AST (test code = 2218) 25 U/L ALT (test code = 2219) 26 U/L Steffen WintersHEMOGLOBIN [id number] 00:00:00* Test Item Value Reference Range Interpretation Comme [facility] HEMOGLOBIN A1c (test code = 96690) 5.9 % Steffen WintersVITAMIN D, 25 [id number] 05:32:52* Test Item Value Reference Range Interpretation Comme [facility] VITAMIN D, 25 OH (test code = 4958) 24 NG/ML SEE BELOW L EFFECTIVE 05/2023, PLEASE NOTE NEW METHODOLOGY IS ELECTROCHEMILUMINESCENCE BINDING ASSAY. NOTE: 25-HYDROXYVITAMIN D ASSAY INCLUDES 25-HYDROXYVITAMIN D2 AND D3. INTERPRETIVE RANGES PEDIATRIC (<17 YEARS) . . . . . . . . . . . NG/ML 20-100ADULT: INSUFFICIENT . . . . . . . . . . . . . . NG/ML <20 SUBOPTIMAL . . . . . . . . . . . . . . . NG/ML 20-29 OPTIMAL . . . . . . . . . . . . . . . . . NG/ML 30-100 UNLESS OTHERWISE INDICATED, ALL TESTING PERFORMED AT [facility] [address] [place] [address] PULP BLEACHER: JONATAN RUFFIN M.D. IA NUMBER [id number] [facility] [place]. [id number] LIPID [id number] 05:11:53* Test Item Value Reference Range Interpretation Comme nts CHOLESTEROL (test code = 2210) 111 MG/DL <200 TRIGLYCERIDES (test code = 2232) 164 MG/DL <150 H HDL CHOLESTEROL (test code = 2220) 39 MG/DL >39 L CALC LDL CHOL (test code = 2237) 48 MG/DL <100 NOTE: CALCULATED LDL IS BASED ON JEFFREY-GARCIA METHOD WHICHINCLUDES ADJUSTABLE TRIGLYCERIDE:VLDL CHOLESTEROL RATIO.THIS FACTOR VARIES BY MEASURED TRIGLYCERIDE AND NON-HDLCHOLESTEROL CONCENTRATIONS WITH INCREASED CALCULATED LDL SEENIN HIGHER TRIGLYCERIDE OR LOWER NON-HDL SPECIMENS. FOR MOREINFORMATION, SEE CLIENT ANNOUNCEMENT AT [email or web address] RISK RATIO LDL/HDL (test code = 2238) 1.23 RATIO <3.22 COMPREHENSIVE METABOLIC [id number] 05:11:53* Test Item Value Reference Range Interpretation Comme nts GLUCOSE (test code = 2217) 114 MG/DL 70-99 H BUN (test code = 2208) 15 MG/DL 8-23 CREATININE (test code = 2214) 0.55 MG/DL 0.60-1.30 L eGFR (2020 CKD-EPI) (test code = 75164) 104 ML/MIN/1.73 >60 CALC BUN/CREAT (test code = 2235) 27 RATIO 6-28 SODIUM (test code = 2231) 139 MEQ/L 133-146 POTASSIUM (test code = 2228) 4.1 MEQ/L 3.5-5.4 CHLORIDE (test code = 2215) 104 MEQ/L 95-107 CARBON DIOXIDE (test code = 2206) 25 MEQ/L 19-31 CALCIUM (test code = 220) 9.4 MG/DL 8.5-10.5 PROTEIN, TOTAL (test code = 222) 7.3 G/DL 6.1-8.3 ALBUMIN (test code = 220) 4.7 G/DL 3.5-5.2 CALC GLOBULIN (test code = 2240) 2.6 G/DL 1.9-3.7 CALC A/G RATIO (test code = 223) 1.8 RATIO 1.0-2.6 BILIRUBIN, TOTAL (test code = 2206) 0.4 MG/DL See_Comment [Automated me ssage] The system which generated this result transmitted reference range: <=1.2. The reference range was not used to interpret this result as normal/abnormal. ALKALINE PHOSPHATASE (test code = 2203) 71 U/L 40-140 AST (test code = 2217) 20 U/L 9-40 ALT (test code = 2218) 19 U/L 5-40 HEMOGLOBIN [id number] 04:20:33* Test Item Value Reference Range Interpretation Comme nts HEMOGLOBIN A1c (test code = 37167) 6.0 % 4.2-5.6 H [employer] GUIDELINES FOR HGB A1C: PREDIABETES/INCREASED RISK . . . . . . . 5.7-6.4% DIAGNOSIS OF DIABETES . . . . . . . . . >=6.5% WITH CONFIRMATION OR APPROPRIATE SYMPTOMS NOTE: ASSAY MAY BE AFFECTED BY HEMOGLOBINOPATHIES (SICKLE CELL ANEMIA, S-C DISEASE, OTHERS) OR ARTIFICIALLY LOWERED BY DECREASED RED CELL SURVIVAL (HEMOLYTIC ANEMIAS, BLOOD LOSS, ETC.). CONSIDER ALTERNATE TESTING OR LABORATORY CONSULTATION. COMPREHENSIVE METABOLIC [id number] 00:00:00* Test Item Value Reference Range Interpretation Comme nts GLUCOSE (test code = 2216) 114 MG/DL BUN (test code = 2207) 15 MG/DL CREATININE (test code = 2214) 0.55 MG/DL eGFR (2020 CKD-EPI) (test code = 20222) 104 ML/MIN/1.73 CALC BUN/CREAT (test code = 223) 27 RATIO SODIUM (test code = 2231) 139 MEQ/L POTASSIUM (test code = 2228) 4.1 MEQ/L CHLORIDE (test code = 2215) 104 MEQ/L CARBON DIOXIDE (test code = 6) 25 MEQ/L CALCIUM (test code = 220) 9.4 MG/DL PROTEIN, TOTAL (test code = 222) 7.3 G/DL ALBUMIN (test code = 2201) 4.7 G/DL CALC GLOBULIN (test code = 2240) 2.6 G/DL CALC A/G RATIO (test code = 2234) 1.8 RATIO BILIRUBIN, TOTAL (test code = 2207) 0.4 MG/DL ALKALINE PHOSPHATASE (test code = 2204) 71 U/L AST (test code = 2218) 20 U/L ALT (test code = 2219) 19 U/L Steffen WintersVITAMIN D, 25 [id number] 00:00:00* Test Item Value Reference Range Interpretation Comme [facility] VITAMIN D, 25 OH (test code = 4958) 24 NG/ML Steffen WintersHEMOGLOBIN [id number] 00:00:00* Test Item Value Reference Range Interpretation Comme jose HEMOGLOBIN A1c (test code = 41221) 6.0 % Steffen WintersLIPID [id number] 00:00:00* Test Item Value Reference Range Interpretation Comme nts CHOLESTEROL (test code = 2210) 111 MG/DL TRIGLYCERIDES (test code = 2232) 164 MG/DL HDL CHOLESTEROL (test code = 2220) 39 MG/DL CALC LDL CHOL (test code = 2237) 48 MG/DL RISK RATIO LDL/HDL (test cod e = 2238) 1.23 RATIO Steffen WintersCOMPREHENSIVE METABOLIC [id number] 00:00:00* Test Item Value Reference Range Interpretation Comme nts GLUCOSE (test code = 2217) 114 MG/DL BUN (test code = 2208) 15 MG/DL CREATININE (test code = 2214) 0.55 MG/DL eGFR (2020 CKD-EPI) (test code = 03672) 104 ML/MIN/1.73 CALC BUN/CREAT (test code = 2235) 27 RATIO SODIUM (test code = 2231) 139 MEQ/L POTASSIUM (test code = 2228) 4.1 MEQ/L CHLORIDE (test code = 2215) 104 MEQ/L CARBON DIOXIDE (test code = 2206) 25 MEQ/L CALCIUM (test code = 2209) 9.4 MG/DL PROTEIN, TOTAL (test code = 2229) 7.3 G/DL ALBUMIN (test code = 2201) 4.7 G/DL CALC GLOBULIN (test code = 2240) 2.6 G/DL CALC A/G RATIO (test code = 2234) 1.8 RATIO BILIRUBIN, TOTAL (test code = 2207) 0.4 MG/DL ALKALINE PHOSPHATASE (test code = 2204) 71 U/L AST (test code = 2218) 20 U/L ALT (test code = 2219) 19 U/L Steffen WintersVITAMIN D, 25 [id number] 00:00:00* Test Item Value Reference Range Interpretation Comme jose VITAMIN D, 25 OH (test code = 4958) 24 NG/ML Steffen WintersHEMOGLOBIN [id number] 00:00:00* Test Item Value Reference Range Interpretation Comme jose HEMOGLOBIN A1c (test code = 37068) 6.0 % Steffen WintersLIPID [id number] 00:00:00* Test Item Value Reference Range Interpretation Comme nts CHOLESTEROL (test code = 2210) 111 MG/DL TRIGLYCERIDES (test code = 2232) 164 MG/DL HDL CHOLESTEROL (test code = 2220) 39 MG/DL CALC LDL CHOL (test code = 2237) 48 MG/DL RISK RATIO LDL/HDL (test cod e = 2238) 1.23 RATIO Steffen WintersCOMPREHENSIVE METABOLIC [id number] 00:00:00* Test Item Value Reference Range Interpretation Comme nts GLUCOSE (test code = 2217) 114 MG/DL BUN (test code = 2208) 15 MG/DL CREATININE (test code = 2214) 0.55 MG/DL eGFR (2020 CKD-EPI) (test code = 82134) 104 ML/MIN/1.73 CALC BUN/CREAT (test code = 2235) 27 RATIO SODIUM (test code = 2231) 139 MEQ/L POTASSIUM (test code = 2228) 4.1 MEQ/L CHLORIDE (test code = 2215) 104 MEQ/L CARBON DIOXIDE (test code = 2206) 25 MEQ/L CALCIUM (test code = 2209) 9.4 MG/DL PROTEIN, TOTAL (test code = 2229) 7.3 G/DL ALBUMIN (test code = 2201) 4.7 G/DL CALC GLOBULIN (test code = 2240) 2.6 G/DL CALC A/G RATIO (test code = 2234) 1.8 RATIO BILIRUBIN, TOTAL (test code = 2207) 0.4 MG/DL ALKALINE PHOSPHATASE (test code = 2204) 71 U/L AST (test code = 2218) 20 U/L ALT (test code = 2219) 19 U/L Steffen WintersVITAMIN D, 25 [id number] 00:00:00* Test Item Value Reference Range Interpretation Comme jose VITAMIN D, 25 OH (test code = 4958) 24 NG/ML Steffen WintersHEMOGLOBIN [id number] 00:00:00* Test Item Value Reference Range Interpretation Comme jose HEMOGLOBIN A1c (test code = 05730) 6.0 % Steffen WintersLIPID [id number] 00:00:00* Test Item Value Reference Range Interpretation Comme nts CHOLESTEROL (test code = 2210) 111 MG/DL TRIGLYCERIDES (test code = 2232) 164 MG/DL HDL CHOLESTEROL (test code = 2220) 39 MG/DL CALC LDL CHOL (test code = 2237) 48 MG/DL RISK RATIO LDL/HDL (test cod e = 2238) 1.23 RATIO Steffen WintersVITAMIN D, 25 [id number] 06:20:54* Test Item Value Reference Range Interpretation Comme jose VITAMIN D, 25 OH (test code = 4958) 20 NG/ML SEE BELOW L EFFECTIVE 05/2023, PLEASE NOTE NEW METHODOLOGY IS ELECTROCHEMILUMINESCENCE BINDING ASSAY. NOTE: 25-HYDROXYVITAMIN D ASSAY INCLUDES 25-HYDROXYVITAMIN D2 AND D3. INTERPRETIVE RANGES PEDIATRIC (<17 YEARS) . . . . . . . . . . . NG/ML 20-100ADULT: INSUFFICIENT . . . . . . . . . . . . . . NG/ML <20 SUBOPTIMAL . . . . . . . . . . . . . . . NG/ML 20-29 OPTIMAL . . . . . . . . . . . . . . . . . NG/ML 30-100 UNLESS OTHERWISE INDICATED, ALL TESTING PERFORMED AT [facility] [address] [place] [address] PULP BLEACHER: JONATAN RUFFIN M.D. CLIA NUMBER [id number] [facility] [place]. [id number] HEMOGLOBIN [id number] 03:53:32* Test Item Value Reference Range Interpretation Comme jose HEMOGLOBIN A1c (test code = 41953) 6.0 % 4.2-5.6 H [employer] GUIDELINES FOR HGB A1C: PREDIABETES/INCREASED RISK . . . . . . . 5.7-6.4% DIAGNOSIS OF DIABETES . . . . . . . . . >=6.5% WITH CONFIRMATION OR APPROPRIATE SYMPTOMS NOTE: ASSAY MAY BE AFFECTED BY HEMOGLOBINOPATHIES (SICKLE CELL ANEMIA, S-C DISEASE, OTHERS) OR ARTIFICIALLY LOWERED BY DECREASED RED CELL SURVIVAL (HEMOLYTIC ANEMIAS, BLOOD LOSS, ETC.). CONSIDER ALTERNATE TESTING OR LABORATORY CONSULTATION. LIPID [id number] 03:41:25* Test Item Value Reference Range Interpretation Comme nts CHOLESTEROL (test code = 2210) 92 MG/DL <200 TRIGLYCERIDES (test code = 2232) 101 MG/DL <150 HDL CHOLESTEROL (test code = 2220) 39 MG/DL >39 L CALC LDL CHOL (test code = 2237) 35 MG/DL <100 NOTE: CALCULATED LDL IS BASED ON JEFFREY-GARCIA METHOD WHICHINCLUDES ADJUSTABLE TRIGLYCERIDE:VLDL CHOLESTEROL RATIO.THIS FACTOR VARIES BY MEASURED TRIGLYCERIDE AND NON-HDLCHOLESTEROL CONCENTRATIONS WITH INCREASED CALCULATED LDL SEENIN HIGHER TRIGLYCERIDE OR LOWER NON-HDL SPECIMENS. FOR MOREINFORMATION, SEE CLIENT ANNOUNCEMENT AT [email or web address] RISK RATIO LDL/HDL (test code = 2238) 0.90 RATIO <3.22 COMPREHENSIVE METABOLIC [id number] 03:41:25* Test Item Value Reference Range Interpretation Comme nts GLUCOSE (test code = 2217) 104 MG/DL 70-99 H BUN (test code = 2207) 13 MG/DL 8-23 CREATININE (test code = 2214) 0.59 MG/DL 0.60-1.30 L eGFR (2020 CKD-EPI) (test code = 98651) 102 ML/MIN/1.73 >60 CALC BUN/CREAT (test code = 2235) 22 RATIO 6-28 SODIUM (test code = 2231) 140 MEQ/L 133-146 POTASSIUM (test code = 2228) 4.3 MEQ/L 3.5-5.4 CHLORIDE (test code = 2215) 105 MEQ/L 95-107 CARBON DIOXIDE (test code = 2206) 25 MEQ/L 19-31 CALCIUM (test code = 2209) 9.9 MG/DL 8.5-10.5 PROTEIN, TOTAL (test code = 9) 7.5 G/DL 6.1-8.3 ALBUMIN (test code = 2201) 4.6 G/DL 3.5-5.2 CALC GLOBULIN (test code = 2240) 2.9 G/DL 1.9-3.7 CALC A/G RATIO (test code = 2233) 1.6 RATIO 1.0-2.6 BILIRUBIN, TOTAL (test code = 2206) 0.4 MG/DL See_Comment [Automated ROBLOX ssage] The system which generated this result transmitted reference range: <=1.2. The reference range was not used to interpret this result as normal/abnormal. ALKALINE PHOSPHATASE (test code = 2203) 87 U/L 40-140 AST (test code = 221) 26 U/L 9-40 ALT (test code = 2219) 29 U/L 5-40 CBC W/AUTO DIFF WITH [id number] 03:12:19* Test Item Value Reference Range Interpretation Comme nts WBC (test code = 1001) 6.6 K/UL 3.5-11.0 RBC (test code = 1002) 4.69 M/UL 3.80-5.40 HEMOGLOBIN (test code = 1003) 14.1 G/DL 11.5-15.5 HEMATOCRIT (test code = 1004) 41.3 % 34.0-45.0 MCV (test code = 1005) 88.1 fL 80.0-99.0 MCH (test code = 1006) 30.1 PG 25.0-33.0 MCHC (test code = 1007) 34.1 G/DL 31.0-36.0 RDW (test code = 1038) 12.5 % 11.5-15.0 NEUTROPHILS (test code = 1008) 56.7 % LYMPHOCYTES (test code = 1010) 35.5 % MONOCYTES (test code = 1011) 5.8 % EOSINOPHILS (test code = 1012) 1.2 % BASOPHILS (test code = 1013) 0.6 % IMMATURE GRANULOCYTES (test code = 1036) 0.2 % NUCLEATED RBCS (test code = 1065) 0.0 /100 WBC'S See_Comment [Automated [employer]] The system which generated this result transmitted reference range: 0.0. The reference range was not used to interpret this result as normal/abnormal. PLATELET COUNT (test code = 1015) 255 K/UL 130-400 ABSOLUTE NEUTROPHILS (test code = 1066) 3.73 K/UL 1.50-7.50 ABSOLUTE LYMPHOCYTES (test code = 1067) 2.33 K/UL 1.00-4.00 ABSOLUTE MONOCYTES (test code = 1068) 0.38 K/UL 0.20-1.00 ABSOLUTE EOSINOPHILS (test code = 1040) 0.08 K/UL 0.00-0.50 ABSOLUTE BASOPHILS (test code = 1069) 0.04 K/UL 0.00-0.20 ABS IMMATURE GRANULOCYTES (test code = 1020) 0.01 K/UL 0.00-0.10 ABS NUCLEATED RBCS (test code = 11700) 0.00 K/UL 0.00-0.11 LIPID [id number] 00:00:00* Test Item Value Reference Range Interpretation Comme nts CHOLESTEROL (test code = 2210) 92 MG/DL TRIGLYCERIDES (test code = 2232) 101 MG/DL HDL CHOLESTEROL (test code = 2220) 39 MG/DL CALC LDL CHOL (test code = 2237) 35 MG/DL RISK RATIO LDL/HDL (test cod e = 2238) 0.90 RATIO Steffen F SinghCOMPREHENSIVE METABOLIC [id number] 00:00:00* Test Item Value Reference Range Interpretation Comme nts GLUCOSE (test code = 2217) 104 MG/DL BUN (test code = 2208) 13 MG/DL CREATININE (test code = 2214) 0.59 MG/DL eGFR (2020 CKD-EPI) (test code = 34219) 102 ML/MIN/1.73 CALC BUN/CREAT (test code = 2235) 22 RATIO SODIUM (test code = 2231) 140 MEQ/L POTASSIUM (test code = 2228) 4.3 MEQ/L CHLORIDE (test code = 2215) 105 MEQ/L CARBON DIOXIDE (test code = 2206) 25 MEQ/L CALCIUM (test code = 2209) 9.9 MG/DL PROTEIN, TOTAL (test code = 2229) 7.5 G/DL ALBUMIN (test code = 2201) 4.6 G/DL CALC GLOBULIN (test code = 2240) 2.9 G/DL CALC A/G RATIO (test code = 2234) 1.6 RATIO BILIRUBIN, TOTAL (test code = 2207) 0.4 MG/DL ALKALINE PHOSPHATASE (test code = 2204) 87 U/L AST (test code = 2218) 26 U/L ALT (test code = 2219) 29 U/L Steffen WintersVITAMIN D, 25 [id number] 00:00:00* Test Item Value Reference Range Interpretation Comme nts VITAMIN D, 25 OH (test code = 4958) 20 NG/ML Steffen WintersCBC W/AUTO [id number] 00:00:00* Test Item Value Reference Range Interpretation Comme nts WBC (test code = 1001) 6.6 K/UL RBC (test code = 1002) 4.69 M/UL HEMOGLOBIN (test code = 1003) 14.1 G/DL HEMATOCRIT (test code = 1004) 41.3 % MCV (test code = 1005) 88.1 fL MCH (test code = 1006) 30.1 PG MCHC (test code = 1007) 34.1 G/DL RDW (test code = 1038) 12.5 % NEUTROPHILS (test code = 1008) 56.7 % LYMPHOCYTES (test code = 1010) 35.5 % MONOCYTES (test code = 1011) 5.8 % EOSINOPHILS (test code = 1012) 1.2 % BASOPHILS (test code = 1013) 0.6 % IMMATURE GRANULOCYTES (test code = 1036) 0.2 % NUCLEATED RBCS (test code = 1065) 0.0 /100WBC'S PLATELET COUNT (test code = 1015) 255 K/UL ABSOLUTE NEUTROPHILS (test c ode = 1066) 3.73 K/UL ABSOLUTE LYMPHOCYTES (test c ode = 1067) 2.33 K/UL ABSOLUTE MONOCYTES (test cod e = 1068) 0.38 K/UL ABSOLUTE EOSINOPHILS (test c ode = 1040) 0.08 K/UL ABSOLUTE BASOPHILS (test cod e = 1069) 0.04 K/UL ABS IMMATURE GRANULOCYTES (t est code = 1020) 0.01 K/UL ABS NUCLEATED RBCS (test cod e = 19582) 0.00 K/UL Steffen WintersHEMOGLOBIN [id number] 00:00:00* Test Item Value Reference Range Interpretation Comme nts HEMOGLOBIN A1c (test code = 58619) 6.0 % Steffen WintersLIPID [id number] 00:00:00* Test Item Value Reference Range Interpretation Comme nts CHOLESTEROL (test code = 2210) 92 MG/DL TRIGLYCERIDES (test code = 2232) 101 MG/DL HDL CHOLESTEROL (test code = 2220) 39 MG/DL CALC LDL CHOL (test code = 2237) 35 MG/DL RISK RATIO LDL/HDL (test cod e = 2238) 0.90 RATIO Steffen WintersCOMPREHENSIVE METABOLIC [id number] 00:00:00* Test Item Value Reference Range Interpretation Comme nts GLUCOSE (test code = 2217) 104 MG/DL BUN (test code = 2208) 13 MG/DL CREATININE (test code = 2214) 0.59 MG/DL eGFR (2020 CKD-EPI) (test code = 31911) 102 ML/MIN/1.73 CALC BUN/CREAT (test code = 2235) 22 RATIO SODIUM (test code = 2231) 140 MEQ/L POTASSIUM (test code = 2228) 4.3 MEQ/L CHLORIDE (test code = 2215) 105 MEQ/L CARBON DIOXIDE (test code = 2206) 25 MEQ/L CALCIUM (test code = 2209) 9.9 MG/DL PROTEIN, TOTAL (test code = 2229) 7.5 G/DL ALBUMIN (test code = 2201) 4.6 G/DL CALC GLOBULIN (test code = 2240) 2.9 G/DL CALC A/G RATIO (test code = 2234) 1.6 RATIO BILIRUBIN, TOTAL (test code = 2207) 0.4 MG/DL ALKALINE PHOSPHATASE (test code = 2204) 87 U/L AST (test code = 2218) 26 U/L ALT (test code = 2219) 29 U/L Steffen WintersVITAMIN D, 25 [id number] 00:00:00* Test Item Value Reference Range Interpretation Comme nts VITAMIN D, 25 OH (test code = 4958) 20 NG/ML Steffen WintersCBC W/AUTO [id number] 00:00:00* Test Item Value Reference Range Interpretation Comme nts WBC (test code = 1001) 6.6 K/UL RBC (test code = 1002) 4.69 M/UL HEMOGLOBIN (test code = 1003) 14.1 G/DL HEMATOCRIT (test code = 1004) 41.3 % MCV (test code = 1005) 88.1 fL MCH (test code = 1006) 30.1 PG MCHC (test code = 1007) 34.1 G/DL RDW (test code = 1038) 12.5 % NEUTROPHILS (test code = 1008) 56.7 % LYMPHOCYTES (test code = 1010) 35.5 % MONOCYTES (test code = 1011) 5.8 % EOSINOPHILS (test code = 1012) 1.2 % BASOPHILS (test code = 1013) 0.6 % IMMATURE GRANULOCYTES (test code = 1036) 0.2 % NUCLEATED RBCS (test code = 1065) 0.0 /100WBC'S PLATELET COUNT (test code = 1015) 255 K/UL ABSOLUTE NEUTROPHILS (test c ode = 1066) 3.73 K/UL ABSOLUTE LYMPHOCYTES (test c ode = 1067) 2.33 K/UL ABSOLUTE MONOCYTES (test cod e = 1068) 0.38 K/UL ABSOLUTE EOSINOPHILS (test c ode = 1040) 0.08 K/UL ABSOLUTE BASOPHILS (test cod e = 1069) 0.04 K/UL ABS IMMATURE GRANULOCYTES (t est code = 1020) 0.01 K/UL ABS NUCLEATED RBCS (test cod e = 89413) 0.00 K/UL Steffen WintersHEMOGLOBIN [id number] 00:00:00* Test Item Value Reference Range Interpretation Comme nts HEMOGLOBIN A1c (test code = 40512) 6.0 % Steffen WintersLIPID [id number] 00:00:00* Test Item Value Reference Range Interpretation Comme nts CHOLESTEROL (test code = 2210) 92 MG/DL TRIGLYCERIDES (test code = 2232) 101 MG/DL HDL CHOLESTEROL (test code = 2220) 39 MG/DL CALC LDL CHOL (test code = 2237) 35 MG/DL RISK RATIO LDL/HDL (test cod e = 2238) 0.90 RATIO Steffen WintersCOMPREHENSIVE METABOLIC [id number] 00:00:00* Test Item Value Reference Range Interpretation Comme nts GLUCOSE (test code = 2217) 104 MG/DL BUN (test code = 2208) 13 MG/DL CREATININE (test code = 2214) 0.59 MG/DL eGFR (2020 CKD-EPI) (test code = 19879) 102 ML/MIN/1.73 CALC BUN/CREAT (test code = 2235) 22 RATIO SODIUM (test code = 2231) 140 MEQ/L POTASSIUM (test code = 2228) 4.3 MEQ/L CHLORIDE (test code = 2215) 105 MEQ/L CARBON DIOXIDE (test code = 2206) 25 MEQ/L CALCIUM (test code = 2209) 9.9 MG/DL PROTEIN, TOTAL (test code = 2229) 7.5 G/DL ALBUMIN (test code = 2201) 4.6 G/DL CALC GLOBULIN (test code = 2240) 2.9 G/DL CALC A/G RATIO (test code = 2234) 1.6 RATIO BILIRUBIN, TOTAL (test code = 2207) 0.4 MG/DL ALKALINE PHOSPHATASE (test code = 2204) 87 U/L AST (test code = 2218) 26 U/L ALT (test code = 2219) 29 U/L Steffen WintersVITAMIN D, 25 [id number] 00:00:00* Test Item Value Reference Range Interpretation Comme nts VITAMIN D, 25 OH (test code = 4958) 20 NG/ML Steffen Fallon SinghCBC W/AUTO [id number] 00:00:00* Test Item Value Reference Range Interpretation Comme nts WBC (test code = 1001) 6.6 K/UL RBC (test code = 1002) 4.69 M/UL HEMOGLOBIN (test code = 1003) 14.1 G/DL HEMATOCRIT (test code = 1004) 41.3 % MCV (test code = 1005) 88.1 fL MCH (test code = 1006) 30.1 PG MCHC (test code = 1007) 34.1 G/DL RDW (test code = 1038) 12.5 % NEUTROPHILS (test code = 1008) 56.7 % LYMPHOCYTES (test code = 1010) 35.5 % MONOCYTES (test code = 1011) 5.8 % EOSINOPHILS (test code = 1012) 1.2 % BASOPHILS (test code = 1013) 0.6 % IMMATURE GRANULOCYTES (test code = 1036) 0.2 % NUCLEATED RBCS (test code = 1065) 0.0 /100WBC'S PLATELET COUNT (test code = 1015) 255 K/UL ABSOLUTE NEUTROPHILS (test c ode = 1066) 3.73 K/UL ABSOLUTE LYMPHOCYTES (test c ode = 1067) 2.33 K/UL ABSOLUTE MONOCYTES (test cod e = 1068) 0.38 K/UL ABSOLUTE EOSINOPHILS (test c ode = 1040) 0.08 K/UL ABSOLUTE BASOPHILS (test cod e = 1069) 0.04 K/UL ABS IMMATURE GRANULOCYTES (t est code = 1020) 0.01 K/UL ABS NUCLEATED RBCS (test cod e = 73967) 0.00 K/UL Steffen WintersHEMOGLOBIN [id number] 00:00:00* Test Item Value Reference Range Interpretation Comme jose HEMOGLOBIN A1c (test code = 51345) 6.0 % Steffen Fallon AustinHEMOGLOBIN [id number] 02:38:27* Test Item Value Reference Range Interpretation Comme jose HEMOGLOBIN A1c (test code = 48690) 6.3 % 4.2-5.6 H UNLESS OTHERWISE INDICATED, ALL TESTING PERFORMED evolso PATHOLOGY [employer] [address] [place] [address] PULP BLEACHER: LAWRENCE DODD M.D. CLIA NUMBER [id number] [facility] [place]. [id number] HEMOGLOBIN [id number] 00:00:00* Test Item Value Reference Range Interpretation Comme jose HEMOGLOBIN A1c (test code = 54867) 6.3 % Steffen Fallon AustinHEMOGLOBIN [id number] 00:00:00* Test Item Value Reference Range Interpretation Comme jose HEMOGLOBIN A1c (test code = 03545) 6.3 % Steffen Fallon AustinHEMOGLOBIN [id number] 00:00:00* Test Item Value Reference Range Interpretation Comme jose HEMOGLOBIN A1c (test code = 17320) 6.3 % Steffen Fallon AustinVITAMIN [id number] 06:41:16* Test Item Value Reference Range Interpretation Comme nts VITAMIN B-12 (test code = 2840) 712 PG/ML 200-950 TSH, THIRD [id number] 06:41:16* Test Item Value Reference Range Interpretation Comme nts TSH, THIRD GENERATION (test code = 2821) 3.830 UIU/ML 0.400-4.100 UNLESS OTHERWISE INDICATED, ALL TESTING PERFORMED evolso PATHOLOGY [employer] [address] [place] [address] PULP BLEACHER: LAWRENCE DODD M.D. IA NUMBER [id number] [facility] [place] [place]. [id number] VITAMIN D, 25 [id number] 04:01:54* Test Item Value Reference Range Interpretation Comme nts VITAMIN D, 25 OH (test code = 4958) 18 NG/ML SEE BELOW L NOTE: 25-HYDR OXYVITAMIN D ASSAY INCLUDES 25-HYDROXYVITAMIN D2 AND D3. METHODOLOGY IS CHEMILUMINESCENT IMMUNOASSAY. INTERPRETIVE RANGES PEDIATRIC (<17 YEARS) . . . . . . . . . . . NG/ML 20-100ADULT: INSUFFICIENT . . . . . . . . . . . . . . NG/ML <20 SUBOPTIMAL . . . . . . . . . . . . . . . NG/ML 20-29 OPTIMAL . . . . . . . . . . . . . . . . . NG/ML 30-100 LIPID [id number] 03:42:46* Test Item Value Reference Range Interpretation Comme nts CHOLESTEROL (test code = 2210) 104 MG/DL <200 TRIGLYCERIDES (test code = 2232) 163 MG/DL <150 H HDL CHOLESTEROL (test code = 2220) 35 MG/DL >39 L CALC LDL CHOL (test code = 2237) 45 MG/DL <100 NOTE: CALCULATED LDL IS BASED ON JEFFREY-GARCIA METHOD WHICHINCLUDES ADJUSTABLE TRIGLYCERIDE:VLDL CHOLESTEROL RATIO.THIS FACTOR VARIES BY MEASURED TRIGLYCERIDE AND NON-HDLCHOLESTEROL CONCENTRATIONS WITH INCREASED CALCULATED LDL SEENIN HIGHER TRIGLYCERIDE OR LOWER NON-HDL SPECIMENS. FOR MOREINFORMATION, SEE CLIENT ANNOUNCEMENT AT [email or web address] RISK RATIO LDL/HDL (test code = 2238) 1.29 RATIO <3.22 COMPREHENSIVE METABOLIC [id number] 03:42:46* Test Item Value Reference Range Interpretation Comme nts GLUCOSE (test code = 2217) 115 MG/DL 70-99 H BUN (test code = 8) 14 MG/DL 8-23 CREATININE (test code = 2214) 0.51 MG/DL 0.60-1.30 L eGFR (2020 CKD-EPI) (test code = 00832) 106 ML/MIN/1.73 >60 CALC BUN/CREAT (test code = 2235) 27 RATIO 6-28 SODIUM (test code = 2231) 144 MEQ/L 133-146 POTASSIUM (test code = 2227) 4.3 MEQ/L 3.5-5.4 CHLORIDE (test code = 2214) 107 MEQ/L 95-107 CARBON DIOXIDE (test code = 2205) 23 MEQ/L 19-31 CALCIUM (test code = 2208) 9.9 MG/DL 8.5-10.5 PROTEIN, TOTAL (test code = 2228) 8.0 G/DL 6.1-8.3 ALBUMIN (test code = 2200) 4.7 G/DL 3.5-5.2 CALC GLOBULIN (test code = 2239) 3.3 G/DL 1.9-3.7 CALC A/G RATIO (test code = 2233) 1.4 RATIO 1.0-2.6 BILIRUBIN, TOTAL (test code = 2206) 0.4 MG/DL See_Comment [Automated me ssage] The system which generated this result transmitted reference range: <=1.2. The reference range was not used to interpret this result as normal/abnormal. ALKALINE PHOSPHATASE (test code = 2203) 88 U/L 40-140 AST (test code = 2217) 26 U/L 9-40 ALT (test code = 2218) 28 U/L 5-40 CBC W/AUTO DIFF WITH [id number] 03:35:27* Test Item Value Reference Range Interpretation Comme nts WBC (test code = 1001) 6.7 K/UL 3.5-11.0 RBC (test code = 1002) 4.73 M/UL 3.80-5.40 HEMOGLOBIN (test code = 1003) 13.7 G/DL 11.5-15.5 HEMATOCRIT (test code = 1004) 41.2 % 34.0-45.0 MCV (test code = 1005) 87.1 fL 80.0-99.0 MCH (test code = 1006) 29.0 PG 25.0-33.0 MCHC (test code = 1007) 33.3 G/DL 31.0-36.0 RDW (test code = 1038) 12.1 % 11.5-15.0 NEUTROPHILS (test code = 1008) 53.5 % LYMPHOCYTES (test code = 1010) 34.7 % MONOCYTES (test code = 1011) 8.5 % EOSINOPHILS (test code = 1012) 2.4 % BASOPHILS (test code = 1013) 0.6 % IMMATURE GRANULOCYTES (test code = 1036) 0.3 % NUCLEATED RBCS (test code = 1065) 0.0 /100 WBC'S See_Comment [Automated messa ge] The system which generated this result transmitted reference range: 0.0. The reference range was not used to interpret this result as normal/abnormal. PLATELET COUNT (test code = 1015) 243 K/UL 130-400 ABSOLUTE NEUTROPHILS (test code = 1066) 3.61 K/UL 1.50-7.50 ABSOLUTE LYMPHOCYTES (test code = 1067) 2.34 K/UL 1.00-4.00 ABSOLUTE MONOCYTES (test code = 1068) 0.57 K/UL 0.20-1.00 ABSOLUTE EOSINOPHILS (test code = 1040) 0.16 K/UL 0.00-0.50 ABSOLUTE BASOPHILS (test code = 1069) 0.04 K/UL 0.00-0.20 ABS IMMATURE GRANULOCYTES (test code = 1020) 0.02 K/UL 0.00-0.10 ABS NUCLEATED RBCS (test code = 03203) 0.00 K/UL 0.00-0.11 COMPREHENSIVE METABOLIC [id number] 00:00:00* Test Item Value Reference Range Interpretation Comme nts GLUCOSE (test code = 2217) 115 MG/DL BUN (test code = 2208) 14 MG/DL CREATININE (test code = 2214) 0.51 MG/DL eGFR (2020 CKD-EPI) (test code = 36240) 106 ML/MIN/1.73 CALC BUN/CREAT (test code = 2235) 27 RATIO SODIUM (test code = 2231) 144 MEQ/L POTASSIUM (test code = 2228) 4.3 MEQ/L CHLORIDE (test code = 2215) 107 MEQ/L CARBON DIOXIDE (test code = 2206) 23 MEQ/L CALCIUM (test code = 2209) 9.9 MG/DL PROTEIN, TOTAL (test code = 2229) 8.0 G/DL ALBUMIN (test code = 2201) 4.7 G/DL CALC GLOBULIN (test code = 2240) 3.3 G/DL CALC A/G RATIO (test code = 2234) 1.4 RATIO BILIRUBIN, TOTAL (test code = 2207) 0.4 MG/DL ALKALINE PHOSPHATASE (test code = 2204) 88 U/L AST (test code = 2218) 26 U/L ALT (test code = 2219) 28 U/L Steffen WintersVITAMIN [id number] 00:00:00* Test Item Value Reference Range Interpretation Comme jose VITAMIN B-12 (test code = 2840) 712 PG/ML Steffen WintersVITAMIN D, 25 [id number] 00:00:00* Test Item Value Reference Range Interpretation Comme joes VITAMIN D, 25 OH (test code = 4958) 18 NG/ML Steffen [id number] 00:00:00* Test Item Value Reference Range Interpretation Comme [facility] TSH, THIRD GENERATION (test code = 2821) 3.830 UIU/ML Steffen WintersCBC W/AUTO [id number] 00:00:00* Test Item Value Reference Range Interpretation Comme jose WBC (test code = 1001) 6.7 K/UL RBC (test code = 1002) 4.73 M/UL HEMOGLOBIN (test code = 1003) 13.7 G/DL HEMATOCRIT (test code = 1004) 41.2 % MCV (test code = 1005) 87.1 fL MCH (test code = 1006) 29.0 PG MCHC (test code = 1007) 33.3 G/DL RDW (test code = 1038) 12.1 % NEUTROPHILS (test code = 1008) 53.5 % LYMPHOCYTES (test code = 1010) 34.7 % MONOCYTES (test code = 1011) 8.5 % EOSINOPHILS (test code = 1012) 2.4 % BASOPHILS (test code = 1013) 0.6 % IMMATURE GRANULOCYTES (test code = 1036) 0.3 % NUCLEATED RBCS (test code = 1065) 0.0 /100WBC'S PLATELET COUNT (test code = 1015) 243 K/UL ABSOLUTE NEUTROPHILS (test c ode = 1066) 3.61 K/UL ABSOLUTE LYMPHOCYTES (test c ode = 1067) 2.34 K/UL ABSOLUTE MONOCYTES (test cod e = 1068) 0.57 K/UL ABSOLUTE EOSINOPHILS (test c ode = 1040) 0.16 K/UL ABSOLUTE BASOPHILS (test cod e = 1069) 0.04 K/UL ABS IMMATURE GRANULOCYTES (t est code = 1020) 0.02 K/UL ABS NUCLEATED RBCS (test cod e = 76026) 0.00 K/UL Steffen WintersLIPID [id number] 00:00:00* Test Item Value Reference Range Interpretation Comme nts CHOLESTEROL (test code = 2210) 104 MG/DL TRIGLYCERIDES (test code = 2232) 163 MG/DL HDL CHOLESTEROL (test code = 2220) 35 MG/DL CALC LDL CHOL (test code = 2237) 45 MG/DL RISK RATIO LDL/HDL (test cod e = 2238) 1.29 RATIO Steffen WintersCOMPREHENSIVE METABOLIC [id number] 00:00:00* Test Item Value Reference Range Interpretation Comme nts GLUCOSE (test code = 2217) 115 MG/DL BUN (test code = 2208) 14 MG/DL CREATININE (test code = 2214) 0.51 MG/DL eGFR (2020 CKD-EPI) (test code = 72783) 106 ML/MIN/1.73 CALC BUN/CREAT (test code = 2235) 27 RATIO SODIUM (test code = 2231) 144 MEQ/L POTASSIUM (test code = 2228) 4.3 MEQ/L CHLORIDE (test code = 2215) 107 MEQ/L CARBON DIOXIDE (test code = 2206) 23 MEQ/L CALCIUM (test code = 2209) 9.9 MG/DL PROTEIN, TOTAL (test code = 2229) 8.0 G/DL ALBUMIN (test code = 2201) 4.7 G/DL CALC GLOBULIN (test code = 2240) 3.3 G/DL CALC A/G RATIO (test code = 2234) 1.4 RATIO BILIRUBIN, TOTAL (test code = 2207) 0.4 MG/DL ALKALINE PHOSPHATASE (test code = 2204) 88 U/L AST (test code = 2218) 26 U/L ALT (test code = 2219) 28 U/L Steffen WintersVITAMIN [id number] 00:00:00* Test Item Value Reference Range Interpretation Comme [facility] VITAMIN B-12 (test code = 2840) 712 PG/ML Steffen WintersVITAMIN D, 25 [id number] 00:00:00* Test Item Value Reference Range Interpretation Comme [facility] VITAMIN D, 25 OH (test code = 4958) 18 NG/ML Steffen [id number] 00:00:00* Test Item Value Reference Range Interpretation Comme nts TSH, THIRD GENERATION (test code = 2821) 3.830 UIU/ML Steffen WintersCBC W/AUTO [id number] 00:00:00* Test Item Value Reference Range Interpretation Comme nts WBC (test code = 1001) 6.7 K/UL RBC (test code = 1002) 4.73 M/UL HEMOGLOBIN (test code = 1003) 13.7 G/DL HEMATOCRIT (test code = 1004) 41.2 % MCV (test code = 1005) 87.1 fL MCH (test code = 1006) 29.0 PG MCHC (test code = 1007) 33.3 G/DL RDW (test code = 1038) 12.1 % NEUTROPHILS (test code = 1008) 53.5 % LYMPHOCYTES (test code = 1010) 34.7 % MONOCYTES (test code = 1011) 8.5 % EOSINOPHILS (test code = 1012) 2.4 % BASOPHILS (test code = 1013) 0.6 % IMMATURE GRANULOCYTES (test code = 1036) 0.3 % NUCLEATED RBCS (test code = 1065) 0.0 /100WBC'S PLATELET COUNT (test code = 1015) 243 K/UL ABSOLUTE NEUTROPHILS (test c ode = 1066) 3.61 K/UL ABSOLUTE LYMPHOCYTES (test c ode = 1067) 2.34 K/UL ABSOLUTE MONOCYTES (test cod e = 1068) 0.57 K/UL ABSOLUTE EOSINOPHILS (test c ode = 1040) 0.16 K/UL ABSOLUTE BASOPHILS (test cod e = 1069) 0.04 K/UL ABS IMMATURE GRANULOCYTES (t est code = 1020) 0.02 K/UL ABS NUCLEATED RBCS (test cod e = 81808) 0.00 K/UL Steffen WintesrLIPID [id number] 00:00:00* Test Item Value Reference Range Interpretation Comme nts CHOLESTEROL (test code = 2210) 104 MG/DL TRIGLYCERIDES (test code = 2232) 163 MG/DL HDL CHOLESTEROL (test code = 2220) 35 MG/DL CALC LDL CHOL (test code = 2237) 45 MG/DL RISK RATIO LDL/HDL (test cod e = 2238) 1.29 RATIO Steffen F AustinCOMPREHENSIVE METABOLIC [id number] 00:00:00* Test Item Value Reference Range Interpretation Comme nts GLUCOSE (test code = 7) 115 MG/DL BUN (test code = 2207) 14 MG/DL CREATININE (test code = 2214) 0.51 MG/DL eGFR (2020 CKD-EPI) (test code = ) 106 ML/MIN/1.73 CALC BUN/CREAT (test code = 2235) 27 RATIO SODIUM (test code = 223) 144 MEQ/L POTASSIUM (test code = 2228) 4.3 MEQ/L CHLORIDE (test code = 2215) 107 MEQ/L CARBON DIOXIDE (test code = 2206) 23 MEQ/L CALCIUM (test code = 2209) 9.9 MG/DL PROTEIN, TOTAL (test code = 2228) 8.0 G/DL ALBUMIN (test code = 220) 4.7 G/DL CALC GLOBULIN (test code = 2240) 3.3 G/DL CALC A/G RATIO (test code = 223) 1.4 RATIO BILIRUBIN, TOTAL (test code = 2206) 0.4 MG/DL ALKALINE PHOSPHATASE (test code = 2204) 88 U/L AST (test code = 2218) 26 U/L ALT (test code = 2219) 28 U/L Steffen WintersVITAMIN [id number] 00:00:00* Test Item Value Reference Range Interpretation Comme [facility] VITAMIN B-12 (test code = 2840) 712 PG/ML Steffen WintersVITAMIN D, 25 [id number] 00:00:00* Test Item Value Reference Range Interpretation Comme [facility] VITAMIN D, 25 OH (test code = 4958) 18 NG/ML Steffen [id number] 00:00:00* Test Item Value Reference Range Interpretation Comme [facility] TSH, THIRD GENERATION (test code = 2821) 3.830 UIU/ML Steffen WintersCBC W/AUTO [id number] 00:00:00* Test Item Value Reference Range Interpretation Comme [facility] WBC (test code = 1001) 6.7 K/UL RBC (test code = 1002) 4.73 M/UL HEMOGLOBIN (test code = 1003) 13.7 G/DL HEMATOCRIT (test code = 1004) 41.2 % MCV (test code = 1005) 87.1 fL MCH (test code = 1006) 29.0 PG MCHC (test code = 1007) 33.3 G/DL RDW (test code = 1038) 12.1 % NEUTROPHILS (test code = 1008) 53.5 % LYMPHOCYTES (test code = 1010) 34.7 % MONOCYTES (test code = 1011) 8.5 % EOSINOPHILS (test code = 1012) 2.4 % BASOPHILS (test code = 1013) 0.6 % IMMATURE GRANULOCYTES (test code = 1036) 0.3 % NUCLEATED RBCS (test code = 1065) 0.0 /100WBC'S PLATELET COUNT (test code = 1015) 243 K/UL ABSOLUTE NEUTROPHILS (test c ode = 1066) 3.61 K/UL ABSOLUTE LYMPHOCYTES (test c ode = 1067) 2.34 K/UL ABSOLUTE MONOCYTES (test cod e = 1068) 0.57 K/UL ABSOLUTE EOSINOPHILS (test c ode = 1040) 0.16 K/UL ABSOLUTE BASOPHILS (test cod e = 1069) 0.04 K/UL ABS IMMATURE GRANULOCYTES (t est code = 1020) 0.02 K/UL ABS NUCLEATED RBCS (test cod e = 89338) 0.00 K/UL Steffen Vasyl AustinLIPID [id number] 00:00:00* Test Item Value Reference Range Interpretation Comme nts CHOLESTEROL (test code = 2210) 104 MG/DL TRIGLYCERIDES (test code = 2232) 163 MG/DL HDL CHOLESTEROL (test code = 2220) 35 MG/DL CALC LDL CHOL (test code = 2237) 45 MG/DL RISK RATIO LDL/HDL (test cod e = 2238) 1.29 RATIO Steffen WintersCOMPREHENSIVE METABOLIC [id number] 06:52:23* Test Item Value Reference Range Interpretation Comme nts GLUCOSE (test code = 2217) 114 MG/DL 70-99 H BUN (test code = 2208) 15 MG/DL 8-23 CREATININE (test code = 2214) 0.47 MG/DL 0.60-1.30 L eGFR (2020 CKD-EPI) (test code = 70403) 108 ML/MIN/1.73 >60 CALC BUN/CREAT (test code = 2235) 32 RATIO 6-28 H SODIUM (test code = 2230) 141 MEQ/L 133-146 POTASSIUM (test code = 2227) 4.2 MEQ/L 3.5-5.4 CHLORIDE (test code = 2214) 105 MEQ/L 95-107 CARBON DIOXIDE (test code = 2205) 22 MEQ/L 19-31 CALCIUM (test code = 2208) 9.3 MG/DL 8.5-10.5 PROTEIN, TOTAL (test code = 2228) 7.5 G/DL 6.1-8.3 ALBUMIN (test code = 2200) 4.8 G/DL 3.5-5.2 CALC GLOBULIN (test code = 2240) 2.7 G/DL 1.9-3.7 CALC A/G RATIO (test code = 2233) 1.8 RATIO 1.0-2.6 BILIRUBIN, TOTAL (test code = 2206) 0.3 MG/DL See_Comment [Automated me ssage] The system which generated this result transmitted reference range: <=1.2. The reference range was not used to interpret this result as normal/abnormal. ALKALINE PHOSPHATASE (test code = 2203) 81 U/L 40-140 AST (test code = 2217) 22 U/L 9-40 ALT (test code = 221) 24 U/L 5-40 LIPID [id number] 06:52:23* Test Item Value Reference Range Interpretation Comme nts CHOLESTEROL (test code = 221) 102 MG/DL <200 TRIGLYCERIDES (test code = 2232) 139 MG/DL <150 HDL CHOLESTEROL (test code = 2219) 36 MG/DL >39 L CALC LDL CHOL (test code = 2236) 44 MG/DL <100 NOTE: CALCULATED LDL IS BASED ON JEFFREY-GARCIA METHOD WHICHINCLUDES ADJUSTABLE TRIGLYCERIDE:VLDL CHOLESTEROL RATIO.THIS FACTOR VARIES BY MEASURED TRIGLYCERIDE AND NON-HDLCHOLESTEROL CONCENTRATIONS WITH INCREASED CALCULATED LDL SEENIN HIGHER TRIGLYCERIDE OR LOWER NON-HDL SPECIMENS. FOR MOREINFORMATION, SEE CLIENT ANNOUNCEMENT AT [email or web address] RISK RATIO LDL/HDL (test code = 223) 1.22 RATIO <3.22 UNLESS OTHERW ISE INDICATED, ALL TESTING PERFORMED ATCLINICAL PATHOLOGY [employer] [address] [place] [id number] PULP BLEACHER: LAWRENCE DODD M.D. CLIA NUMBER [id number] [facility] [place]. [id number] LIPID [id number] 00:00:00* Test Item Value Reference Range Interpretation Comme nts CHOLESTEROL (test code = 2210) 102 MG/DL TRIGLYCERIDES (test code = 2232) 139 MG/DL HDL CHOLESTEROL (test code = 2220) 36 MG/DL CALC LDL CHOL (test code = 2237) 44 MG/DL RISK RATIO LDL/HDL (test cod e = 2238) 1.22 RATIO COMPREHENSIVE METABOLIC [id number] 00:00:00* Test Item Value Reference Range Interpretation Comme nts GLUCOSE (test code = 2217) 114 MG/DL BUN (test code = 2208) 15 MG/DL CREATININE (test code = 2214) 0.47 MG/DL eGFR (2020 CKD-EPI) (test code = 01092) 108 ML/MIN/1.73 CALC BUN/CREAT (test code = 2235) 32 RATIO SODIUM (test code = 2231) 141 MEQ/L POTASSIUM (test code = 2228) 4.2 MEQ/L CHLORIDE (test code = 2215) 105 MEQ/L CARBON DIOXIDE (test code = 2206) 22 MEQ/L CALCIUM (test code = 2209) 9.3 MG/DL PROTEIN, TOTAL (test code = 2229) 7.5 G/DL ALBUMIN (test code = 2201) 4.8 G/DL CALC GLOBULIN (test code = 2240) 2.7 G/DL CALC A/G RATIO (test code = 2234) 1.8 RATIO BILIRUBIN, TOTAL (test code = 2207) 0.3 MG/DL ALKALINE PHOSPHATASE (test code = 2204) 81 U/L AST (test code = 2218) 22 U/L ALT (test code = 2219) 24 U/L COMPREHENSIVE METABOLIC [id number] 00:00:00* Test Item Value Reference Range Interpretation Comme nts GLUCOSE (test code = 2217) 114 MG/DL BUN (test code = 2208) 15 MG/DL CREATININE (test code = 2214) 0.47 MG/DL eGFR (2020 CKD-EPI) (test code = 84188) 108 ML/MIN/1.73 CALC BUN/CREAT (test code = 2235) 32 RATIO SODIUM (test code = 2231) 141 MEQ/L POTASSIUM (test code = 2228) 4.2 MEQ/L CHLORIDE (test code = 2215) 105 MEQ/L CARBON DIOXIDE (test code = 2206) 22 MEQ/L CALCIUM (test code = 2209) 9.3 MG/DL PROTEIN, TOTAL (test code = 2229) 7.5 G/DL ALBUMIN (test code = 2201) 4.8 G/DL CALC GLOBULIN (test code = 2240) 2.7 G/DL CALC A/G RATIO (test code = 2234) 1.8 RATIO BILIRUBIN, TOTAL (test code = 2207) 0.3 MG/DL ALKALINE PHOSPHATASE (test code = 2204) 81 U/L AST (test code = 2218) 22 U/L ALT (test code = 2219) 24 U/L Steffen Fallon Austin[place]IP[place] [id number] 00:00:00* Test Item Value Reference Range Interpretation Comme nts CHOLESTEROL (test code = 2210) 102 MG/DL TRIGLYCERIDES (test code = 2232) 139 MG/DL HDL CHOLESTEROL (test code = 2220) 36 MG/DL CALC LDL CHOL (test code = 2237) 44 MG/DL RISK RATIO LDL/HDL (test cod e = 2238) 1.22 RATIO Steffen WintersCOMPREHENSIVE METABOLIC [id number] 00:00:00* Test Item Value Reference Range Interpretation Comme nts GLUCOSE (test code = 2217) 114 MG/DL BUN (test code = 2208) 15 MG/DL CREATININE (test code = 2214) 0.47 MG/DL eGFR (2020 CKD-EPI) (test code = 06181) 108 ML/MIN/1.73 CALC BUN/CREAT (test code = 2235) 32 RATIO SODIUM (test code = 2231) 141 MEQ/L POTASSIUM (test code = 2228) 4.2 MEQ/L CHLORIDE (test code = 2215) 105 MEQ/L CARBON DIOXIDE (test code = 2206) 22 MEQ/L CALCIUM (test code = 2209) 9.3 MG/DL PROTEIN, TOTAL (test code = 2229) 7.5 G/DL ALBUMIN (test code = 2201) 4.8 G/DL CALC GLOBULIN (test code = 2240) 2.7 G/DL CALC A/G RATIO (test code = 2234) 1.8 RATIO BILIRUBIN, TOTAL (test code = 2207) 0.3 MG/DL ALKALINE PHOSPHATASE (test code = 2204) 81 U/L AST (test code = 2218) 22 U/L ALT (test code = 2219) 24 U/L Steffen Fallon [place] [id number] 00:00:00* Test Item Value Reference Range Interpretation Comme nts CHOLESTEROL (test code = 2210) 102 MG/DL TRIGLYCERIDES (test code = 2232) 139 MG/DL HDL CHOLESTEROL (test code = 2220) 36 MG/DL CALC LDL CHOL (test code = 2237) 44 MG/DL RISK RATIO LDL/HDL (test cod e = 2238) 1.22 RATIO Steffen WintersCOMPREHENSIVE METABOLIC [id number] 00:00:00* Test Item Value Reference Range Interpretation Comme nts GLUCOSE (test code = 2217) 114 MG/DL BUN (test code = 2208) 15 MG/DL CREATININE (test code = 2214) 0.47 MG/DL eGFR (2020 CKD-EPI) (test code = 90783) 108 ML/MIN/1.73 CALC BUN/CREAT (test code = 2235) 32 RATIO SODIUM (test code = 2231) 141 MEQ/L POTASSIUM (test code = 2228) 4.2 MEQ/L CHLORIDE (test code = 2215) 105 MEQ/L CARBON DIOXIDE (test code = 2206) 22 MEQ/L CALCIUM (test code = 2209) 9.3 MG/DL PROTEIN, TOTAL (test code = 2229) 7.5 G/DL ALBUMIN (test code = 2201) 4.8 G/DL CALC GLOBULIN (test code = 2240) 2.7 G/DL CALC A/G RATIO (test code = 2234) 1.8 RATIO BILIRUBIN, TOTAL (test code = 2207) 0.3 MG/DL ALKALINE PHOSPHATASE (test code = 2204) 81 U/L AST (test code = 2218) 22 U/L ALT (test code = 2219) 24 U/L Steffen Fallon [place] [id number] 00:00:00* Test Item Value Reference Range Interpretation Comme nts CHOLESTEROL (test code = 2210) 102 MG/DL TRIGLYCERIDES (test code = 2232) 139 MG/DL HDL CHOLESTEROL (test code = 2220) 36 MG/DL CALC LDL CHOL (test code = 2237) 44 MG/DL RISK RATIO LDL/HDL (test cod e = 2238) 1.22 RATIO Steffen Fallon AustinH. PYLORI (BREATH)2021-03-14 00:00:00* Test Item Value Reference Range Interpretation Comme nts H. PYLORI (BREATH) (test cod e = 00200) POSITIVE H. PYLORI (BREATH)2021-03-14 00:00:00* Test Item Value Reference Range Interpretation Comme nts H. PYLORI (BREATH) (test cod e = 95941) POSITIVE Steffen F AustinH. PYLORI (BREATH)2021-03-14 00:00:00* Test Item Value Reference Range Interpretation Comme nts H. PYLORI (BREATH) (test cod e = 98473) POSITIVE Steffen Fallon AustinH. PYLORI (BREATH)2021-03-14 00:00:00* Test Item Value Reference Range Interpretation Comme nts H. PYLORI (BREATH) (test cod e = 92596) POSITIVE Steffen Fallon AustinH. PYLORI (BREATH)2020-12-13 00:00:00* Test Item Value Reference Range Interpretation Comme nts H. PYLORI (BREATH) (test cod e = 08606) POSITIVE H. PYLORI (BREATH)2020-12-13 00:00:00* Test Item Value Reference Range Interpretation Comme nts H. PYLORI (BREATH) (test cod e = 47386) POSITIVE Steffen F AustinH. PYLORI (BREATH)2020-12-13 00:00:00* Test Item Value Reference Range Interpretation Comme nts H. PYLORI (BREATH) (test cod e = 02528) POSITIVE Steffen F AustinH. PYLORI (BREATH)2020-12-13 00:00:00* Test Item Value Reference Range Interpretation Comme nts H. PYLORI (BREATH) (test cod e = 73998) POSITIVE Steffen F AustinH. PYLORI (BREATH)2020-11-15 00:00:00* Test Item Value Reference Range Interpretation Comme nts H. PYLORI (BREATH) (test cod e = 46982) POSITIVE H. PYLORI (BREATH)2020-11-15 00:00:00* Test Item Value Reference Range Interpretation Comme nts H. PYLORI (BREATH) (test cod e = 49477) POSITIVE Steffen F AustinH. PYLORI (BREATH)2020-11-15 00:00:00* Test Item Value Reference Range Interpretation Comme nts H. PYLORI (BREATH) (test cod e = 27889) POSITIVE Steffen WintersH. PYLORI (BREATH)2020-11-15 00:00:00* Test Item Value Reference Range Interpretation Comme nts H. PYLORI (BREATH) (test cod e = 64277) POSITIVE Steffen Fallon AustinHEMOGLOBIN [id number] 00:00:00* Test Item Value Reference Range Interpretation Comme nts HEMOGLOBIN A1c (test code = 24849) 6.0 % HEMOGLOBIN [id number] 00:00:00* Test Item Value Reference Range Interpretation Comme nts HEMOGLOBIN A1c (test code = 82965) 6.0 % Steffen Fallon AustinHEMOGLOBIN [id number] 00:00:00* Test Item Value Reference Range Interpretation Comme jose HEMOGLOBIN A1c (test code = 68289) 6.0 % Steffen Fallon AustinHEMOGLOBIN [id number] 00:00:00* Test Item Value Reference Range Interpretation Comme jose HEMOGLOBIN A1c (test code = 52275) 6.0 % Steffen WintersCBC W/AUTO [id number] 00:00:00* Test Item Value Reference Range Interpretation Comme nts WBC (test code = 1001) 6.6 K/UL RBC (test code = 1002) 4.57 M/UL HEMOGLOBIN (test code = 1003) 13.6 G/DL HEMATOCRIT (test code = 1004) 39.1 % MCV (test code = 1005) 85.6 fL MCH (test code = 1006) 29.8 PG MCHC (test code = 1007) 34.8 G/DL RDW (test code = 1038) 12.5 % NEUTROPHILS (test code = 1008) 56.5 % LYMPHOCYTES (test code = 1010) 36.0 % MONOCYTES (test code = 1011) 5.8 % EOSINOPHILS (test code = 1012) 0.9 % BASOPHILS (test code = 1013) 0.8 % PLATELET COUNT (test code = 1015) 220 K/UL LIPID [id number] 00:00:00* Test Item Value Reference Range Interpretation Comme nts CHOLESTEROL (test code = 2210) 150 MG/DL TRIGLYCERIDES (test code = 2232) 240 MG/DL HDL CHOLESTEROL (test code = 2220) 34 MG/DL CALC LDL CHOL (test code = 2237) 83 MG/DL RISK RATIO LDL/HDL (test cod e = 2238) 2.44 RATIO Steffen Fallon AustinLIPID [id number] 00:00:00* Test Item Value Reference Range Interpretation Comme nts CHOLESTEROL (test code = 2210) 150 MG/DL TRIGLYCERIDES (test code = 2232) 240 MG/DL HDL CHOLESTEROL (test code = 2220) 34 MG/DL CALC LDL CHOL (test code = 2237) 83 MG/DL RISK RATIO LDL/HDL (test cod e = 2238) 2.44 RATIO COMPREHENSIVE METABOLIC [id number] 00:00:00* Test Item Value Reference Range Interpretation Comme nts GLUCOSE (test code = 2217) 102 MG/DL BUN (test code = 2208) 11 MG/DL CREATININE (test code = 2214) 0.40 MG/DL eGFR AMER. (test cod e = 85415) 131 ML/MIN/1.73 eGFR NON- AMER. (test code = 84724) 113 ML/MIN/1.73 CALC BUN/CREAT (test code = 2235) 28 RATIO SODIUM (test code = 2231) 139 MEQ/L POTASSIUM (test code = 2228) 4.1 MEQ/L CHLORIDE (test code = 2215) 105 MEQ/L CARBON DIOXIDE (test code = 2206) 25 MEQ/L CALCIUM (test code = 2209) 9.4 MG/DL PROTEIN, TOTAL (test code = 2229) 7.4 G/DL ALBUMIN (test code = 2201) 4.4 G/DL CALC GLOBULIN (test code = 2240) 3.0 G/DL CALC A/G RATIO (test code = 2234) 1.5 RATIO BILIRUBIN, TOTAL (test code = 2207) 0.3 MG/DL ALKALINE PHOSPHATASE (test code = 2204) 88 U/L AST (test code = 2218) 30 U/L ALT (test code = 2219) 36 U/L COMPREHENSIVE METABOLIC [id number] 00:00:00* Test Item Value Reference Range Interpretation Comme nts GLUCOSE (test code = 2217) 102 MG/DL BUN (test code = 2208) 11 MG/DL CREATININE (test code = 2214) 0.40 MG/DL eGFR AMER. (test cod e = 46362) 131 ML/MIN/1.73 eGFR NON- AMER. (test code = 45784) 113 ML/MIN/1.73 CALC BUN/CREAT (test code = 2235) 28 RATIO SODIUM (test code = 2231) 139 MEQ/L POTASSIUM (test code = 2228) 4.1 MEQ/L CHLORIDE (test code = 2215) 105 MEQ/L CARBON DIOXIDE (test code = 2206) 25 MEQ/L CALCIUM (test code = 2209) 9.4 MG/DL PROTEIN, TOTAL (test code = 2229) 7.4 G/DL ALBUMIN (test code = 2201) 4.4 G/DL CALC GLOBULIN (test code = 2240) 3.0 G/DL CALC A/G RATIO (test code = 2234) 1.5 RATIO BILIRUBIN, TOTAL (test code = 2207) 0.3 MG/DL ALKALINE PHOSPHATASE (test code = 2204) 88 U/L AST (test code = 2218) 30 U/L ALT (test code = 2219) 36 U/L Steffen WintersCBC W/AUTO [id number] 00:00:00* Test Item Value Reference Range Interpretation Comme nts WBC (test code = 1001) 6.6 K/UL RBC (test code = 1002) 4.57 M/UL HEMOGLOBIN (test code = 1003) 13.6 G/DL HEMATOCRIT (test code = 1004) 39.1 % MCV (test code = 1005) 85.6 fL MCH (test code = 1006) 29.8 PG MCHC (test code = 1007) 34.8 G/DL RDW (test code = 1038) 12.5 % NEUTROPHILS (test code = 1008) 56.5 % LYMPHOCYTES (test code = 1010) 36.0 % MONOCYTES (test code = 1011) 5.8 % EOSINOPHILS (test code = 1012) 0.9 % BASOPHILS (test code = 1013) 0.8 % PLATELET COUNT (test code = 1015) 220 K/UL Steffen WintersLIPID [id number] 00:00:00* Test Item Value Reference Range Interpretation Comme nts CHOLESTEROL (test code = 2210) 150 MG/DL TRIGLYCERIDES (test code = 2232) 240 MG/DL HDL CHOLESTEROL (test code = 2220) 34 MG/DL CALC LDL CHOL (test code = 2237) 83 MG/DL RISK RATIO LDL/HDL (test cod e = 2238) 2.44 RATIO Steffen WintersCOMPREHENSIVE METABOLIC [id number] 00:00:00* Test Item Value Reference Range Interpretation Comme nts GLUCOSE (test code = 2217) 102 MG/DL BUN (test code = 2208) 11 MG/DL CREATININE (test code = 2214) 0.40 MG/DL eGFR AMER. (test cod e = 73844) 131 ML/MIN/1.73 eGFR NON- AMER. (test code = 09525) 113 ML/MIN/1.73 CALC BUN/CREAT (test code = 2235) 28 RATIO SODIUM (test code = 2231) 139 MEQ/L POTASSIUM (test code = 2228) 4.1 MEQ/L CHLORIDE (test code = 2215) 105 MEQ/L CARBON DIOXIDE (test code = 2206) 25 MEQ/L CALCIUM (test code = 2209) 9.4 MG/DL PROTEIN, TOTAL (test code = 2229) 7.4 G/DL ALBUMIN (test code = 2201) 4.4 G/DL CALC GLOBULIN (test code = 2240) 3.0 G/DL CALC A/G RATIO (test code = 2234) 1.5 RATIO BILIRUBIN, TOTAL (test code = 2207) 0.3 MG/DL ALKALINE PHOSPHATASE (test code = 2204) 88 U/L AST (test code = 2218) 30 U/L ALT (test code = 2219) 36 U/L Steffen Fallon SinghCBC W/AUTO [id number] 00:00:00* Test Item Value Reference Range Interpretation Comme nts WBC (test code = 1001) 6.6 K/UL RBC (test code = 1002) 4.57 M/UL HEMOGLOBIN (test code = 1003) 13.6 G/DL HEMATOCRIT (test code = 1004) 39.1 % MCV (test code = 1005) 85.6 fL MCH (test code = 1006) 29.8 PG MCHC (test code = 1007) 34.8 G/DL RDW (test code = 1038) 12.5 % NEUTROPHILS (test code = 1008) 56.5 % LYMPHOCYTES (test code = 1010) 36.0 % MONOCYTES (test code = 1011) 5.8 % EOSINOPHILS (test code = 1012) 0.9 % BASOPHILS (test code = 1013) 0.8 % PLATELET COUNT (test code = 1015) 220 K/UL Steffen WintersLIPID [id number] 00:00:00* Test Item Value Reference Range Interpretation Comme nts CHOLESTEROL (test code = 2210) 150 MG/DL TRIGLYCERIDES (test code = 2232) 240 MG/DL HDL CHOLESTEROL (test code = 2220) 34 MG/DL CALC LDL CHOL (test code = 2237) 83 MG/DL RISK RATIO LDL/HDL (test cod e = 2238) 2.44 RATIO Steffen WintersCOMPREHENSIVE METABOLIC [id number] 00:00:00* Test Item Value Reference Range Interpretation Comme nts GLUCOSE (test code = 2217) 102 MG/DL BUN (test code = 2208) 11 MG/DL CREATININE (test code = 2214) 0.40 MG/DL eGFR AMER. (test cod e = 56615) 131 ML/MIN/1.73 eGFR NON- AMER. (test code = 88883) 113 ML/MIN/1.73 CALC BUN/CREAT (test code = 2235) 28 RATIO SODIUM (test code = 2231) 139 MEQ/L POTASSIUM (test code = 2228) 4.1 MEQ/L CHLORIDE (test code = 2215) 105 MEQ/L CARBON DIOXIDE (test code = 2206) 25 MEQ/L CALCIUM (test code = 2209) 9.4 MG/DL PROTEIN, TOTAL (test code = 2229) 7.4 G/DL ALBUMIN (test code = 2201) 4.4 G/DL CALC GLOBULIN (test code = 2240) 3.0 G/DL CALC A/G RATIO (test code = 2234) 1.5 RATIO BILIRUBIN, TOTAL (test code = 2207) 0.3 MG/DL ALKALINE PHOSPHATASE (test code = 2204) 88 U/L AST (test code = 2218) 30 U/L ALT (test code = 2219) 36 U/L Steffen WintersCBC W/AUTO [id number] 00:00:00* Test Item Value Reference Range Interpretation Comme nts WBC (test code = 1001) 6.6 K/UL RBC (test code = 1002) 4.57 M/UL HEMOGLOBIN (test code = 1003) 13.6 G/DL HEMATOCRIT (test code = 1004) 39.1 % MCV (test code = 1005) 85.6 fL MCH (test code = 1006) 29.8 PG MCHC (test code = 1007) 34.8 G/DL RDW (test code = 1038) 12.5 % NEUTROPHILS (test code = 1008) 56.5 % LYMPHOCYTES (test code = 1010) 36.0 % MONOCYTES (test code = 1011) 5.8 % EOSINOPHILS (test code = 1012) 0.9 % BASOPHILS (test code = 1013) 0.8 % PLATELET COUNT (test code = 1015) 220 K/UL Steffen Fallon SinghHEPATITIS A IgM [REFLEX]2019-07-15 00:00:00* Test Item Value Reference Range Interpretation Comme nts HEPATITIS A IgM (test code = 2728) NON-REACTIVE HEPATITIS PROFILE (A,B,C)2019-07-15 00:00:00* Test Item Value Reference Range Interpretation Comme nts HEPATITIS A TOTAL AB (test c ode = 2725) REACTIVE HEPATITIS B SURF AG (test co de = 2739) NON-REACTIVE HEP B CORE TOTAL AB (test co de = 2729) NON-REACTIVE HEPATITIS B SURFACE AB (test code = 2737) NON-REACTIVE HEPATITIS C ANTIBODY (test c ode = 4675) NON-REACTIVE HCV INDEX (test code = 63189) 0.23 INTERPRETATION HEPATITIS A: (test code = 2552) (NOTE) INTERPRETATION HEPATITIS B: (test code = 28744) (NOTE) INTERPRETATION HEPATITIS C: (test code = 15033) (NOTE) HEPATITIS PROFILE (A,B,C)2019-07-15 00:00:00* Test Item Value Reference Range Interpretation Comme nts HEPATITIS A TOTAL AB (test c ode = 2725) REACTIVE HEPATITIS B SURF AG (test co de = 2739) NON-REACTIVE HEP B CORE TOTAL AB (test co de = 2729) NON-REACTIVE HEPATITIS B SURFACE AB (test code = 2737) NON-REACTIVE HEPATITIS C ANTIBODY (test c ode = 4675) NON-REACTIVE HCV INDEX (test code = 17289) 0.23 INTERPRETATION HEPATITIS A: (test code = 2552) (NOTE) INTERPRETATION HEPATITIS B: (test code = 52789) (NOTE) INTERPRETATION HEPATITIS C: (test code = 84697) (NOTE) Steffen HernandezPATITIS A IgM [REFLEX]2019-07-15 00:00:00* Test Item Value Reference Range Interpretation Comme nts HEPATITIS A IgM (test code = 2728) NON-REACTIVE Steffen Fallon AustinHEPATITIS PROFILE (A,B,C)2019-07-15 00:00:00* Test Item Value Reference Range Interpretation Comme nts HEPATITIS A TOTAL AB (test c ode = 2725) REACTIVE HEPATITIS B SURF AG (test co de = 2739) NON-REACTIVE HEP B CORE TOTAL AB (test co de = 2729) NON-REACTIVE HEPATITIS B SURFACE AB (test code = 2737) NON-REACTIVE HEPATITIS C ANTIBODY (test c ode = 4675) NON-REACTIVE HCV INDEX (test code = 46814) 0.23 INTERPRETATION HEPATITIS A: (test code = 2552) (NOTE) INTERPRETATION HEPATITIS B: (test code = 92206) (NOTE) INTERPRETATION HEPATITIS C: (test code = 72811) (NOTE) Steffen HernandezPATITIS A IgM [REFLEX]2019-07-15 00:00:00* Test Item Value Reference Range Interpretation Comme nts HEPATITIS A IgM (test code = 2728) NON-REACTIVE Steffen Fallon AustinPATITIS PROFILE (A,B,C)2019-07-15 00:00:00* Test Item Value Reference Range Interpretation Comme nts HEPATITIS A TOTAL AB (test c ode = 2725) REACTIVE HEPATITIS B SURF AG (test co de = 2739) NON-REACTIVE HEP B CORE TOTAL AB (test co de = 2729) NON-REACTIVE HEPATITIS B SURFACE AB (test code = 2737) NON-REACTIVE HEPATITIS C ANTIBODY (test c ode = 4675) NON-REACTIVE HCV INDEX (test code = 16777) 0.23 INTERPRETATION HEPATITIS A: (test code = 2552) (NOTE) INTERPRETATION HEPATITIS B: (test code = 74343) (NOTE) INTERPRETATION HEPATITIS C: (test code = 62728) (NOTE) Steffen HernandezPATITIS A IgM [REFLEX]2019-07-15 00:00:00* Test Item Value Reference Range Interpretation Comme nts HEPATITIS A IgM (test code = 2728) NON-REACTIVE Steffen Fallon AustinHPV HIGH RISK WITH GENOTYPE, [id number] 00:00:00* Test Item Value Reference Range Interpretation Comme nts HPV HIGH RISK INTERP (test c ode = 57560) NEGATIVE HPV 16 (test code = 82690) NEGATIVE HPV 18 (test code = 57602) NEGATIVE HPV, HR, OTHER GENOTYPES (te st code = 83055) NEGATIVE PAP TEST, THINPREP, [id number] 00:00:00* Test Item Value Reference Range Interpretation Comme nts SOURCE: (test code = 8001) Cervical/Endocervical SLIDES: (test code = 8011) 1 LMP: (test code = 8021) SEE NOTE SPECIMEN ADEQUACY: (test code = 38096) (NOTE) INTERPRETATION: (test code = 86540) NILM/NO EPITH. ABNORMALITY;SEE BELOW OTHER COMMENTS: (test code = 8081) (NOTE) ANIMAL ANATOMY TEACHER: (test code = 8101) LUNA LAO,SHAKEEL(ASCP) LOCATION: (test code = 97848) (NOTE) CPT: (test code = 8140) (NOTE) PAP TEST, THINPREP, [id number] 00:00:00* Test Item Value Reference Range Interpretation Comme nts SOURCE: (test code = 8001) Cervical/Endocervical SLIDES: (test code = 8011) 1 LMP: (test code = 8021) SEE NOTE SPECIMEN ADEQUACY: (test code = 15198) (NOTE) INTERPRETATION: (test code = 00410) NILM/NO EPITH. ABNORMALITY;SEE BELOW OTHER COMMENTS: (test code = 8081) (NOTE) ANIMAL ANATOMY TEACHER: (test code = 8101) SHAKEEL CEVALLOS(ASCP) LOCATION: (test code = 77628) (NOTE) CPT: (test code = 8140) (NOTE) Steffen Fallon AustinHPV HIGH RISK WITH GENOTYPE, [id number] 00:00:00* Test Item Value Reference Range Interpretation Comme nts HPV HIGH RISK INTERP (test c ode = 95565) NEGATIVE HPV 16 (test code = 93453) NEGATIVE HPV 18 (test code = 74891) NEGATIVE HPV, HR, OTHER GENOTYPES (te st code = 34332) NEGATIVE Steffen F AustinPAP TEST, THINPREP, [id number] 00:00:00* Test Item Value Reference Range Interpretation Comme nts SOURCE: (test code = 8001) Cervical/Endocervical SLIDES: (test code = 8011) 1 LMP: (test code = 8021) SEE NOTE SPECIMEN ADEQUACY: (test code = 61199) (NOTE) INTERPRETATION: (test code = 59238) NILM/NO EPITH. ABNORMALITY;SEE BELOW OTHER COMMENTS: (test code = 8081) (NOTE) ANIMAL ANATOMY TEACHER: (test code = 8101) LUNA LAO,CT(ASCP) LOCATION: (test code = 88761) (NOTE) CPT: (test code = 8140) (NOTE) Steffen Fallon AustinHPV HIGH RISK WITH GENOTYPE, [id number] 00:00:00* Test Item Value Reference Range Interpretation Comme nts HPV HIGH RISK INTERP (test c ode = 07360) NEGATIVE HPV 16 (test code = 32105) NEGATIVE HPV 18 (test code = 79572) NEGATIVE HPV, HR, OTHER GENOTYPES (te st code = 75558) NEGATIVE Steffen Fallon AustinPAP TEST, THINPREP, [id number] 00:00:00* Test Item Value Reference Range Interpretation Comme nts SOURCE: (test code = 8001) Cervical/Endocervical SLIDES: (test code = 8011) 1 LMP: (test code = 8021) SEE NOTE SPECIMEN ADEQUACY: (test code = 16870) (NOTE) INTERPRETATION: (test code = 84125) NILM/NO EPITH. ABNORMALITY;SEE BELOW OTHER COMMENTS: (test code = 8081) (NOTE) ANIMAL ANATOMY TEACHER: (test code = 8101) LUNA LAO,CT(ASCP) LOCATION: (test code = 88074) (NOTE) CPT: (test code = 8140) (NOTE) Steffen Fallon AustinHPV HIGH RISK WITH GENOTYPE, [id number] 00:00:00* Test Item Value Reference Range Interpretation Comme nts HPV HIGH RISK INTERP (test c ode = 18617) NEGATIVE HPV 16 (test code = 91413) NEGATIVE HPV 18 (test code = 50697) NEGATIVE HPV, HR, OTHER GENOTYPES (te st code = 18462) NEGATIVE Steffen Fallon AustinCOMPREHENSIVE METABOLIC [id number] 00:00:00* Test Item Value Reference Range Interpretation Comme nts GLUCOSE (test code = 2217) 103 MG/DL BUN (test code = 2208) 16 MG/DL CREATININE (test code = 2214) 0.67 MG/DL eGFR AMER. (test cod e = 39580) 112 ML/MIN/1.73 eGFR NON- AMER. (test code = 05501) 97 ML/MIN/1.73 CALC BUN/CREAT (test code = 2235) 24 RATIO SODIUM (test code = 2231) 144 MEQ/L POTASSIUM (test code = 2228) 4.8 MEQ/L CHLORIDE (test code = 2215) 104 MEQ/L CARBON DIOXIDE (test code = 2206) 25 MEQ/L CALCIUM (test code = 2209) 9.9 MG/DL PROTEIN, TOTAL (test code = 2229) 8.1 G/DL ALBUMIN (test code = 2201) 5.0 G/DL CALC GLOBULIN (test code = 2240) 3.1 G/DL CALC A/G RATIO (test code = 2234) 1.6 RATIO BILIRUBIN, TOTAL (test code = 2207) 0.2 MG/DL ALKALINE PHOSPHATASE (test code = 2204) 109 U/L AST (test code = 2218) 47 U/L ALT (test code = 2219) 49 U/L LIPID [id number] 00:00:00* Test Item Value Reference Range Interpretation Comme nts CHOLESTEROL (test code = 2210) 136 MG/DL TRIGLYCERIDES (test code = 2232) 359 MG/DL HDL CHOLESTEROL (test code = 2220) 30 MG/DL CALC LDL CHOL (test code = 2237) 34 MG/DL RISK RATIO LDL/HDL (test cod e = 2238) 1.14 RATIO LIPID [id number] 00:00:00* Test Item Value Reference Range Interpretation Comme nts CHOLESTEROL (test code = 2210) 136 MG/DL TRIGLYCERIDES (test code = 2232) 359 MG/DL HDL CHOLESTEROL (test code = 2220) 30 MG/DL CALC LDL CHOL (test code = 2237) 34 MG/DL RISK RATIO LDL/HDL (test cod e = 2238) 1.14 RATIO Steffen F AustinCOMPREHENSIVE METABOLIC [id number] 00:00:00* Test Item Value Reference Range Interpretation Comme nts GLUCOSE (test code = 2217) 103 MG/DL BUN (test code = 2208) 16 MG/DL CREATININE (test code = 2214) 0.67 MG/DL eGFR AMER. (test cod e = 12202) 112 ML/MIN/1.73 eGFR NON- AMER. (test code = 65384) 97 ML/MIN/1.73 CALC BUN/CREAT (test code = 2235) 24 RATIO SODIUM (test code = 2231) 144 MEQ/L POTASSIUM (test code = 2228) 4.8 MEQ/L CHLORIDE (test code = 2215) 104 MEQ/L CARBON DIOXIDE (test code = 2206) 25 MEQ/L CALCIUM (test code = 2209) 9.9 MG/DL PROTEIN, TOTAL (test code = 2229) 8.1 G/DL ALBUMIN (test code = 2201) 5.0 G/DL CALC GLOBULIN (test code = 2240) 3.1 G/DL CALC A/G RATIO (test code = 2234) 1.6 RATIO BILIRUBIN, TOTAL (test code = 2207) 0.2 MG/DL ALKALINE PHOSPHATASE (test code = 2204) 109 U/L AST (test code = 2218) 47 U/L ALT (test code = 2219) 49 U/L Steffen Vasyl Lafayette HillLIPID [id number] 00:00:00* Test Item Value Reference Range Interpretation Comme nts CHOLESTEROL (test code = 2210) 136 MG/DL TRIGLYCERIDES (test code = 2232) 359 MG/DL HDL CHOLESTEROL (test code = 2220) 30 MG/DL CALC LDL CHOL (test code = 2237) 34 MG/DL RISK RATIO LDL/HDL (test cod e = 2238) 1.14 RATIO Steffen Fallon SinghCOMPREHENSIVE METABOLIC [id number] 00:00:00* Test Item Value Reference Range Interpretation Comme nts GLUCOSE (test code = 2217) 103 MG/DL BUN (test code = 2208) 16 MG/DL CREATININE (test code = 2214) 0.67 MG/DL eGFR AMER. (test cod e = 97146) 112 ML/MIN/1.73 eGFR NON- AMER. (test code = 13410) 97 ML/MIN/1.73 CALC BUN/CREAT (test code = 2235) 24 RATIO SODIUM (test code = 2231) 144 MEQ/L POTASSIUM (test code = 2228) 4.8 MEQ/L CHLORIDE (test code = 2215) 104 MEQ/L CARBON DIOXIDE (test code = 2206) 25 MEQ/L CALCIUM (test code = 2209) 9.9 MG/DL PROTEIN, TOTAL (test code = 2229) 8.1 G/DL ALBUMIN (test code = 2201) 5.0 G/DL CALC GLOBULIN (test code = 2240) 3.1 G/DL CALC A/G RATIO (test code = 2234) 1.6 RATIO BILIRUBIN, TOTAL (test code = 2207) 0.2 MG/DL ALKALINE PHOSPHATASE (test code = 2204) 109 U/L AST (test code = 2218) 47 U/L ALT (test code = 2219) 49 U/L Steffen WintersLIPID [id number] 00:00:00* Test Item Value Reference Range Interpretation Comme nts CHOLESTEROL (test code = 2210) 136 MG/DL TRIGLYCERIDES (test code = 2232) 359 MG/DL HDL CHOLESTEROL (test code = 2220) 30 MG/DL CALC LDL CHOL (test code = 2237) 34 MG/DL RISK RATIO LDL/HDL (test cod e = 2238) 1.14 RATIO Steffen WintersCOMPREHENSIVE METABOLIC [id number] 00:00:00* Test Item Value Reference Range Interpretation Comme nts GLUCOSE (test code = 2217) 103 MG/DL BUN (test code = 8) 16 MG/DL CREATININE (test code = 2214) 0.67 MG/DL eGFR AMER. (test cod e = 84448) 112 ML/MIN/1.73 eGFR NON- AMER. (test code = 24190) 97 ML/MIN/1.73 CALC BUN/CREAT (test code = 2235) 24 RATIO SODIUM (test code = 2231) 144 MEQ/L POTASSIUM (test code = 2228) 4.8 MEQ/L CHLORIDE (test code = 2215) 104 MEQ/L CARBON DIOXIDE (test code = 6) 25 MEQ/L CALCIUM (test code = 2209) 9.9 MG/DL PROTEIN, TOTAL (test code = 2229) 8.1 G/DL ALBUMIN (test code = 2201) 5.0 G/DL CALC GLOBULIN (test code = 2240) 3.1 G/DL CALC A/G RATIO (test code = 2234) 1.6 RATIO BILIRUBIN, TOTAL (test code = 2207) 0.2 MG/DL ALKALINE PHOSPHATASE (test code = 2204) 109 U/L AST (test code = 2218) 47 U/L ALT (test code = 2219) 49 U/L Steffen WintersH. PYLORI (BREATH)2018-12-10 00:00:00* Test Item Value Reference Range Interpretation Comme nts H. PYLORI (BREATH) (test cod e = 19031) POSITIVE H. PYLORI (BREATH)2018-12-10 00:00:00* Test Item Value Reference Range Interpretation Comme nts H. PYLORI (BREATH) (test cod e = 61364) POSITIVE Steffen Vasyl SinghH. PYLORI (BREATH)2018-12-10 00:00:00* Test Item Value Reference Range Interpretation Comme nts H. PYLORI (BREATH) (test cod e = 30521) POSITIVE Steffen Vasyl SinghH. PYLORI (BREATH)2018-12-10 00:00:00* Test Item Value Reference Range Interpretation Comme nts H. PYLORI (BREATH) (test cod e = 52483) POSITIVE Steffen Winters Notes Date/Time Note Provider Source Steffen Winters [facility]2024-06-18 00:00:00 Steffen Winters [facility]2024-05-23 00:00:00 Steffen [facility]
[2024-07-05] MEDS ORDERED: FENTANYL CITR 100 MCG/2 ML ONE (15:18)
[2024-07-05] MEDS ORDERED: ONDANSETRON 4 MG/2 ML VIAL ONE (15:42)
[2024-07-05 15:52] LABS: Absolute Eosinophils 0.1 K/uL (0-0.5); Absolute Lymphocytes (CBC) 2.2 K/uL (0.7-4.9); Absolute Monocytes 0.8 K/uL (0.1-1.3); Absolute Neutrophil 14.8 K/uL (1.8-8.0); Basophils % 0.1 % (0-1.3); Eosinophils % 0.4 % (0-4.4); Hematocrit 36.8 % (36.0-45.0); Lymphocytes % 12.1 % (15.3-44.8); MCH 29.1 pg (27.0-35.0); MCHC 32.7 g/dL (32.0-36.0); MPV 9.7 fL (7.6-11.3); Monocytes % 4.4 % (3.3-12.3); Platelets 252 thou/uL (152-406); RBC Red Blood Cell Count 4.13 M/uL (3.86-4.86); Red Cell Distribution Width 13.1 % (12.1-15.2)
[2024-07-05 16:07] LABS: ALT/SGPT 43 U/L (13-56); AST/SGOT 33 U/L (15-37); Albumin 3.6 g/dL (3.4-5.0); Alkaline Phosphatase 72 U/L (45-117); BUN Blood Urea Nitrogen 19 mg/dL (7-18); Bicarbonate 26 mEq/L (21-32); Bilirubin Direct < 0.2 mg/dL (0-0.2); Bilirubin Total 0.2 mg/dL (0.2-1.0); Globulin 3.7 g/dL (2.3-3.5); Glomerular Filtration Rate 100 ml/min (=/>90); Glucose Level 154 mg/dL (74-106); Lipase 34 U/L (13-75); Protein, Total 7.3 g/dL (6.4-8.2); Sodium Level 141 mEq/L (136-145)
[2024-07-05] MEDS ORDERED: TDAP (DIPHTH,PERTUSS(ACELL),TET VAC) 0.5 ML VIAL IMVAC ONE (16:11)
--- NOTE | 2024-07-05 16:18 | RAD REPORT ---
EXAM: CT brain without contrast HISTORY: TRAUMA COMPARISON: None TECHNIQUE: Multiple contiguous axial images were obtained and a CT of the brain without contrast. Sag ittal and coronal reformats were performed. FINDINGS: Ventricular caliber is normal. Mild subarachnoid hemorrhage along the bilateral frontal sulci most anteriorly and along the basal fr ontal regions. Tiny subdural hemorrhages along the right anterior frontal and anterior parafalcine regions, measurin g up to our MM in thickness along the right anterior frontal region. Focus of hyperdensity along the basal left anterior frontal lobe, see series 603 image 7, may represe nt a focus of subarachnoid hemorrhage versus a small focus of intraparenchymal hemorrhage. Mild edema of the adjacent white matter within the frontal lobes. No other parenchymal abnormality. Nondisplaced occipital calvarium fissure fracture reaching the posterior margin of the foramen magnum . The visualized paranasal sinuses and mastoid air cells are essentially clear. IMPRESSION: Mild multicompartment intracranial hemorrhage involving the frontal lobes as above. Nondisplaced fissure fracture of the occipital calvarium, reaching the posterior margin of the forame n magnum. EXAM: CT of the cervical spine without contrast HISTORY: TRAUMA COMPARISON: None TECHNIQUE: Multiple contiguous axial images were obtained in a CT of the cervical spine without contr ast. Sagittal and coronal reformats were performed. FINDINGS: The vertebral bodies demonstrate normal height and alignment. No evidence of acute fracture or subluxation.. No degenerative changes are present. No prevertebral soft tissue swelling is seen. The posterior facets are well aligned. Normal alignment of the skull base with the cervical spine is seen. The lung apices are unremarkable. IMPRESSION: No evidence of acute osseous abnormality of the cervical spine. THIS REPORT CONTAINS FINDINGS THAT MAY BE CRITICAL TO PATIENT CARE. The findings were verbally commun icated via telephone to David Whiteside on 07/05/2024 4:12 PM.
--- NOTE | 2024-07-05 16:18 | ER ---
Nurse's Notes [facility] Name: Brittney Vasquez Age: 63 yrs Sex: Female : 1960 Arrival Date: 07/05/2024 Time: 14:52 Bed 20 Private MD: Diagnosis: Subarachnoid Hemorrhage;Subdural Hematoma Presentation: 07/05 15:00 Chief complaint: Fell backwards approx 4 feet off ladder, hit back of head. Positive hb LOC. Coronavirus screen: At this time, the client does not indicate any symptoms associated with coronavirus-19. Ebola Screen: No symptoms or risks identified at this time. Initial Sepsis Screen: Does the patient meet any 2 criteria? No. Patient's initial sepsis screen is negative. Does the patient have a suspected source of infection? No. Patient's initial sepsis screen is negative. Risk Assessment: Do you want to hurt yourself or someone else? Patient reports no desire to harm self or others. Onset of symptoms was July 05, 2024. 15:00 Method Of Arrival: Ambulatory hb 15:00 Acuity: DAVID 2 hb Historical: - Allergies: 15:03 No Known Allergies; hb - PMHx: 15:03 Hyperlipidemia; Hypertension; hb - Immunization history:: Adult Immunizations up to date. - Infectious Disease History:: Denies. - Social history:: Smoking status: . Screenin:00 [facility] ED Fall Risk Assessment (Adult) History of falling in the last 3 months, rs5 including since admission Yes- single mechanical fall (1 pt) Confusion or Disorientation No (0 pts) Intoxicated or Sedated No (0 pts) Impaired Gait Yes (1 pt) Mobility Assist Device Used No (0 pt) Altered Elimination No (0 pt) Score/Fall Risk Level 0 - 2 = Low Risk Oriented to surroundings, Maintained a safe environment. Abuse screen: Denies threats or abuse. Nutritional screening: No deficits noted. Tuberculosis screening: No symptoms or risk factors identified. Assessment: 15:00 General: Appears uncomfortable, Behavior is cooperative. Pain: Complains of pain in rs5 back of head Pain currently is 9 out of 10 on a pain scale. Quality of pain is described as aching, Is continuous. Neuro: Level of Consciousness is awake, alert, obeys commands, Oriented to person, place, time, situation. Neuro: Denies blurred vision. Cardiovascular: Patient's skin is warm and dry. Respiratory: Airway is patent Respiratory effort is even, unlabored, Respiratory pattern is regular, symmetrical. GI: Abdomen is round non-distended, Abd is soft and non tender X 4 quads. : No signs and/or symptoms were reported regarding the genitourinary system. EENT: No signs and/or symptoms were reported regarding the EENT system. Derm: Skin. 15:00 Derm: bruising and swelling noted to back of head. Dried blood noted to back of head, rs5 no active bleeding noted. 15:30 Reassessment: to bedside for wound care to back of head, cleansed with normal saline rs5 and Hibiclens, pt tolerated wound care well . 16:41 Reassessment: Patient and/or family updated on plan of care and expected duration. Pain rs5 level reassessed. Patient is alert, oriented x 3, equal unlabored respirations, skin warm/dry/pink. 17:13 Reassessment: No changes from previously documented assessment. rs5 17:32 Reassessment: report given to EMS at bedside . rs5 Vital Signs: 15:00 BP 149 / 71; Pulse 68; Resp 16; Temp 97.9; Pulse Ox 100% on R/A; Pain 8/10; hb 16:20 BP 142 / 61; Pulse 72; Resp 17; Pulse Ox 98% on R/A; rs5 17:10 BP 137 / 55; Pulse 74; Resp 17; Pulse Ox 99% on R/A; rs5 15:00 Pain Scale: Adult hb [place] Coma Score: 15:01 Eye Response: spontaneous(4). Motor Response: obeys commands(6). Verbal Response: rs5 oriented(5). Total: 15. 17:13 Eye Response: spontaneous(4). Motor Response: obeys commands(6). Verbal Response: rs5 oriented(5). Total: 15. ED Course: 14:53 Patient arrived in ED. im 14:53 David Whiteside MD is Attending Physician. ec2 15:00 Patient has correct armband on for positive identification. Placed in gown. Bed in low rs5 position. Call light in reach. Side rails up X2. 15:00 No provider procedures requiring assistance completed. rs5 15:00 Inserted saline lock: 20 gauge in right antecubital area, using aseptic technique. rs5 Blood collected. Flushed with 10 mL NS. 15:03 Eleazar Little, RN is Primary Nurse. rs5 15:03 Triage completed. hb 15:04 Arm band placed on. hb 15:17 Chest Single View Sent. rs5 15:20 XRAY Pelvis In Process Unspecified. EDMS 15:20 Chest Single View In Process Unspecified. EDMS 15:25 CT Head C Spine In Process Unspecified. EDMS 16:35 initiated transfer to [facility], pt accepted in transfer to [facility] ER by jimy Scanlon admin approval given by Amee Colon. 17:18 [place] [facility] will transport pt to [facility]. bd 17:32 Patient transferred, IV remains in place. rs5 17:33 Provided Education on: need for transfer . rs5 Administered Medications: 15:20 Drug: fentaNYL (PF) IVP 25 mcg IVP once Route: IVP; Site: right antecubital; rs5 15:40 Follow up: Response: No adverse reaction; Pain is decreased rs5 15:20 Drug: Ondansetron IVP 4 mg IVP once; over 2 minutes Route: IVP; Site: right antecubital;rs5 15:40 Follow up: Response: No adverse reaction rs5 15:30 Drug: Boostrix Tdap IM 0.5 ml IM once; as a single dose Route: IM; Site: left deltoid; rs5 16:01 Follow up: Response: No adverse reaction rs5 16:22 Drug: ceFAZolin IVPB 1 grams IVPB once Route: IVPB; Site: right antecubital; rs5 16:50 Follow up: Response: No adverse reaction; IV Status: Completed infusion; IV Intake: rs5 100ml Medication: 17:13 VIS not applicable for this client. rs5 Intake: 16:50 IV: 100ml; Total: 100ml. rs5 Outcome: 16:18 ER care complete, transfer ordered by . ec2 17:32 Transferred by ground EMS Transfer form completed. rs5 17:32 Condition: stable 17:32 Discharge instructions given to patient, family, Instructed on the need for admit, Demonstrated understanding of instructions, 17:33 Patient left the ED. rs5 Signatures: Dispatcher [employer] EDSariah Jenkins Heather RN RN hb Eleazar Little RN RN rs5 Olinda Andrade Edwin, MD MD ec2
--- NOTE | 2024-07-05 16:19 | EDPHYS ---
Physician Documentation [facility] Name: Brittney Vasquez Age: 63 yrs Sex: Female : 1960 Arrival Date: 07/05/2024 Time: 14:52 Bed 20 Private MD: ED Physician David Whiteside HPI: 07/05 15:26 This 63 yrs old Female presents to ER via Ambulatory with complaints of Fall ec2 Injury, Head Injury With LOC-Adult. 15:26 Patient arrives today for evaluation after a head injury. 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 Patient reports LOC. Not on blood thinners. Complaining of headache. Also complaining of an injury to the back of the head.. Historical: - Allergies: 15:03 No Known Allergies; hb - PMHx: 15:03 Hyperlipidemia; Hypertension; hb - Immunization history:: Adult Immunizations up to date. - Infectious Disease History:: Denies. - Social history:: Smoking status: . ROS: 15:27 Constitutional: as per hpi ec2 Exam: 15:27 Constitutional: GEN: No acute distress HEENT: -Head: no deformities -Eyes: EOMI CV: ec2 regular rate LUNGS: no respiratory distress ABD: non-tender SKIN: Wound to the occiput with overlying dried blood present MSK: No C/T/L spine deformities RUE w/o bony deformity LUE w/o bony deformity RLE w/o bony deformity LLE w/o bony deformity NEURO: moves all extremities equally, GCS 15 (E4, V5, M6) Vital Signs: 15:00 BP 149 / 71; Pulse 68; Resp 16; Temp 97.9; Pulse Ox 100% on R/A; Pain 8/10; hb 16:20 BP 142 / 61; Pulse 72; Resp 17; Pulse Ox 98% on R/A; rs5 17:10 BP 137 / 55; Pulse 74; Resp 17; Pulse Ox 99% on R/A; rs5 15:00 Pain Scale: Adult hb [place] Coma Score: 15:01 Eye Response: spontaneous(4). Motor Response: obeys commands(6). Verbal Response: rs5 oriented(5). Total: 15. 17:13 Eye Response: spontaneous(4). Motor Response: obeys commands(6). Verbal Response: rs5 oriented(5). Total: 15. MDM: 14:53 Medical Screening Exam initiated ec2 15:27 Data reviewed: vital signs. ED course: Patient arrives today for evaluation of a head ec2 injury. Examination remarkable for nontoxic individual with a head injury as noted above. Given the LOC as well as a head injury and age, will obtain CT scan of the head and C-spine. Differential diagnoses include processes such as intracranial brain bleed, C-spine fracture. Trauma alert called on my initial evaluation.. 16:18 ED course: I discussed the case with radiology concern for subdural hematoma frontal, ec2 also bilateral subarachnoid's. Also occipital calvarium and fissure fracture.. 16:20 ED course: EKG independently reviewed and interpreted by me, shows normal sinus rhythm, ec2 rate of 63, no acute ST segment elevations, intervals are nonactionable.. 16:22 ED course: Metabolic profile is nonactionable. Liver profile is nonactionable. CT head ec2 and C-spine show injuries as noted above. CBC nonactionable. . 16:36 ED course: I discussed case with Dr. Scanlon at [facility] who agrees accept patient ec2 for transfer. Family updated regarding plan of care. . 07/05 15:02 Order name: Basic Metabolic Panel; Complete Time: 16:22 ec2 07/05 15:02 Order name: CBC with Diff; Complete Time: 15:57 ec2 07/05 15:02 Order name: Hepatic Function; Complete Time: 16:22 ec2 07/05 15:02 Order name: Lipase; Complete Time: 16:22 ec2 07/05 15:02 Order name: Type And Screen; Complete Time: 16:22 ec2 07/05 16:20 Order name: Ptt, Activated ec2 07/05 16:20 Order name: PT-INR ec2 07/05 15:02 Order name: CT Head C Spine; Complete Time: 16:22 ec2 07/05 15:02 Order name: XRAY Pelvis; Complete Time: 17:22 ec2 07/05 15:16 Order name: Chest Single View; Complete Time: 17:22 EDMS 07/05 15:02 Order name: EKG; Complete Time: 15:03 ec2 07/05 15:02 Order name: EKG - Nurse/Tech; Complete Time: 16:14 ec2 07/05 15:02 Order name: IV Saline Lock; Complete Time: 16:14 ec2 07/05 15:02 Order name: Labs collected and sent; Complete Time: 16:14 ec2 07/05 15:02 Order name: NPO; Complete Time: 16:14 ec2 07/05 15:02 Order name: O2 Per Protocol; Complete Time: 16:14 ec2 07/05 15:02 Order name: O2 Sat Monitoring; Complete Time: 16:14 ec2 07/05 15:27 Order name: Wound Care; Complete Time: 16:16 ec2 Administered Medications: 15:20 Drug: fentaNYL (PF) IVP 25 mcg IVP once Route: IVP; Site: right antecubital; rs5 15:40 Follow up: Response: No adverse reaction; Pain is decreased rs5 15:20 Drug: Ondansetron IVP 4 mg IVP once; over 2 minutes Route: IVP; Site: right antecubital;rs5 15:40 Follow up: Response: No adverse reaction rs5 15:30 Drug: Boostrix Tdap IM 0.5 ml IM once; as a single dose Route: IM; Site: left deltoid; rs5 16:01 Follow up: Response: No adverse reaction rs5 16:22 Drug: ceFAZolin IVPB 1 grams IVPB once Route: IVPB; Site: right antecubital; rs5 16:50 Follow up: Response: No adverse reaction; IV Status: Completed infusion; IV Intake: rs5 100ml Disposition Summary: 07/05/24 16:18 Transfer Ordered Notes: Transfer Location: [facility] ec2 Reason: Higher level of care ec2 Condition: Stable ec2 Problem: new ec2 Symptoms: are unchanged ec2 Accepting Physician: transferring doc(07/05/24 17:33) rs5 Diagnosis - Subarachnoid Hemorrhage ec2 - Subdural Hematoma ec2 Discharge Instructions: - Discharge Summary Sheet ec2 - Post-Concussion Syndrome, [id number] ec2 - Subarachnoid Hemorrhage, [id number] ec2 - Subdural Hematoma ec2 Forms: - Medication Reconciliation Form ec2 - SBAR form ec2 Critical care time excluding procedures: 16:26 Critical care time: Bedside Care: 30 minutes, Consultation: 5 minutes, Family ec2 Intervention: 5 minutes. Total time: 40 minutes Signatures: Dispatcher [employer] EDLiz Vazquez RN RN Eleazar Little RN RN rs5 David Whiteside MD MD ec2 Corrections: (The following items were deleted from the chart) 15:03 15:03 BASIC METABOLIC PANEL+C.LAB.BRZ ordered. EDMS EDMS 15:03 15:03 CBC+H.LAB.BRZ ordered. EDMS EDMS 15:03 15:03 HEPATIC FUNCTION+C.LAB.BRZ ordered. EDMS EDMS 15:03 15:03 LIPASE+C.LAB.BRZ ordered. EDMS EDMS 15:03 15:03 TYPE AND SCREEN+BB.LAB.BRZ ordered. EDMS EDMS 15:16 15:03 C Spine Single View+RAD.RAD.BRZ ordered. EDMS EDMS 16:26 15:27 ED course: Patient arrives today for evaluation of a head injury. Examination ec2 remarkable for nontoxic individual with a head injury as noted above. Given the LOC as well as a head injury and age, will obtain CT scan of the head and C-spine. Differential diagnoses include processes such as intracranial brain bleed, C-spine fracture. . ec2 17:33 16:18 transferring doc ec2 rs5
[2024-07-05] MEDS ORDERED: NA CHLORIDE 0.9% 100 ML ONE (16:32)
[2024-07-05] MEDS ORDERED: CEFAZOLIN SODIUM 1 GM/VIAL ONE (16:32)
--- NOTE | 2024-07-05 17:18 | RAD REPORT ---
EXAMINATION: XR PELVIS CLINICAL INDICATION: Female, 63 years old. [facility] MAIN fall from height Bed Name: 20 TECHNIQUE: AP Pelvis radiograph was obtained. COMPARISON: No prior exam. FINDINGS: No evidence of fracture or dislocation. Normal alignment. No evidence of AVN. Soft tissues are unremarkable. IMPRESSION: No acute or significant abnormalities.
--- NOTE | 2024-07-05 17:18 | RAD REPORT ---
EXAMINATION: ONE VIEW CHEST XR CLINICAL INDICATION: Female, 63 years old.,fall from height TECHNIQUE: Frontal chest projection is submitted. Examination is limited by patient positioning and t echnique. COMPARISON: 10/08/2013 FINDINGS: The lungs are well inflated and clear. No pneumothorax or sizable effusion. The heart is normal in s ize. IMPRESSION: No acute intrathoracic abnormalities.
[2024-07-05 17:36] LABS: PT Prothrombin Time 11.8 SECONDS (9.4-12.5); PTT, Activated Partial Thromb 29.3 SECONDS (24.3-36.9); Protime INR 1.06
[2024-07-05 20:00] VITALS: TEMP 97.9
[2024-07-05 20:02] VITALS: BP 142/61; O2SAT 98
--- NOTE | 2024-07-08 12:02 | EKG ---
Test Date: 2024-07-05 Test Time: 15:58:06 Press Feeder: RUBA MEASUREMENT RESULTS: Intervals: Rate: 63 WV: 168 QRSD: 100 QT: 446 QTc: 456 [place]: P: 56 WV: 168 QRS: 39 T: 40 INTERPRETIVE STATEMENTS: Normal sinus rhythm Cannot rule out Anterior infarct, age undetermined Abnormal ECG No previous ECG available for comparison Electronically Signed On 07-08-24 11:54:41 CDT by Fabricio Hernandez
== END 2024-07-05 17:33 | disposition short-term general hospital (02) ==
LOC: ER 14:52
DX: S06.6X9A Traumatic subarachnoid hemorrhage with loss of consciousness of unspecified duration, initial encounter (principal); W11.XXXA Fall on and from ladder, initial encounter
CPT/HCPCS: 36415; 70450; 71045; 72125; 72170; 80048; 80076; 83690; 85025; 85610; 85730; 86850; 86900; 86901; 93005; 96365; 96372; 96375; 99285; J0690; J2405; J3010